=== PATIENT | male | born 1955 | race Caucasian/White ===

== ENCOUNTER 2017-02-08 08:19 | Inpatient (IN) | payer OTHER ==
[2017-02-08 09:26] VITALS: BMI 31.3
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
[2017-02-08] MEDS ORDERED: hydrOXYzine PAMOATE 50 MG CAPSULE (FP) PO PRN (11:14)
[2017-02-08] MEDS ORDERED: MENTHOL/PHENOL 1 EACH UD MM PRN (11:14)
[2017-02-08] MEDS ORDERED: ACETAMINOPHEN 325 MG TABLET (FP) PO PRN (11:14)
[2017-02-08] MEDS ORDERED: diphenhydrAMINE HCL 50 MG CAPSULE PO PRN (11:14)
[2017-02-08] MEDS ORDERED: MAGNESIUM CITRATE 300 ML BOTTLE PO PRN (11:14)
[2017-02-08] MEDS ORDERED: LOPERAMIDE HCL 2 MG CAPSULE PO PRN (11:14)
[2017-02-08] MEDS ORDERED: guaiFENesin/D-METHORPHAN HB 10 ML UNIT-DOSE CUPS PO PRN (11:14)
[2017-02-08] MEDS ORDERED: MAGNESIUM HYDROX 2400MG/30ML ORAL SUSPENSION 30 ML CUP PO PRN (11:14)
[2017-02-08] MEDS ORDERED: chlordiazePOXIDE HCL 25 MG CAPSULE PO PRN (11:14)
[2017-02-08] MEDS ORDERED: P-EPHED 60MG/TRIPROLIDI 2.5MG TABLET PO PRN (11:14)
[2017-02-08] MEDS ORDERED: MAG HYDROX/AL HYDROX/SIMETH 30 ML UNIT-DOSE CUP PO PRN (11:14)
[2017-02-08] MEDS ORDERED: chlordiazePOXIDE HCL 25 MG CAPSULE PO ONE (11:45)
[2017-02-08] MEDS: HYDROCHLOROTHIAZIDE 25 MG TABLET (FP) PO SCH (13:10)
[2017-02-08] MEDS: NIFEdipine E.R. 30 MG TABLET (FP) PO SCH (13:10)
[2017-02-08 16:25] LABS: URINE APPEARANCE CLOUDY; URINE BILIRUBIN NEGATIVE (NEGATIVE); URINE BLOOD NEGATIVE (NEGATIVE); URINE COLOR YELLOW; URINE GLUCOSE (UA) NEGATIVE (NEGATIVE); URINE KETONE NEGATIVE (NEGATIVE); URINE LEUK ESTERASE NEGATIVE (NEGATIVE); URINE NITRITE NEGATIVE (NEGATIVE); URINE PROTEIN NEGATIVE (NEGATIVE); URINE UROBILINOGEN NEGATIVE E.U./dl (0.2-1.0)
[2017-02-08] MEDS: chlordiazePOXIDE HCL 25 MG CAPSULE PO SCH ×2 (17:29→22:39)
[2017-02-08] MEDS: IBUPROFEN 400 MG TABLET (FP) PO PRN (17:29)
[2017-02-08] MEDS ORDERED: SENNOSIDES 8.6MG TABLET (FP) PO SCH (22:00)
[2017-02-08] MEDS: ATORVASTATIN CA 10 MG TABLET (FP) PO SCH (22:39)
[2017-02-08] MEDS: RANITIDINE HCL 150 MG TABLET (FP) PO SCH (22:39)
[2017-02-08] MEDS: THIAMINE HCL 100 MG TABLET (FP) PO SCH (22:39)
[2017-02-08] MEDS: SENNOSIDES 8.6MG TABLET (FP) PO SCH (22:39)
[2017-02-09] MEDS: chlordiazePOXIDE HCL 25 MG CAPSULE PO SCH ×4 (06:14→22:39)
[2017-02-09] MEDS: IBUPROFEN 400 MG TABLET (FP) PO PRN (08:44)
[2017-02-09 10:04] LABS: MCH 30.2 pg (25.7-33.7); MCHC 33.3 g/dl (32.0-35.9); MEAN CELL VOLUME 90.4 fl (80-96); PLATELET COUNT 154 K/MM3 (134-434); RDW 14.4 % (11.9-15.9); WHITE BLOOD COUNT 4.3 K/mm3 (4.0-10.0)
[2017-02-09] MEDS: NIFEdipine E.R. 30 MG TABLET (FP) PO SCH (10:27)
[2017-02-09] MEDS: PRENATAL VITAMINS W/ FOLIC ACID TABLET (FP) PO SCH (10:27)
[2017-02-09] MEDS: HYDROCHLOROTHIAZIDE 25 MG TABLET (FP) PO SCH (10:27)
[2017-02-09] MEDS: RANITIDINE HCL 150 MG TABLET (FP) PO SCH ×2 (10:27→22:39)
[2017-02-09 10:39] LABS: ALK PHOS 72 U/L (45-117); ANION GAP 10 (8-16); BILIRUBIN,TOTAL 1.6 mg/dL (0.2-1.0); CALCIUM 9.4 mg/dL (8.5-10.1); CHOLESTEROL 230 mg/dL (50-200); CO2 27 mmol/L (21-32); CREATININE 0.9 mg/dL (0.7-1.3); GLUCOSE,RANDOM 157 mg/dL (74-106); LDL CHOLESTEROL (ONLY SJRH) 99 mg/dL (5-100); SGOT/AST 36 U/L (15-37); SGPT/ALT 32 U/L (12-78); TOT PROT 7.6 g/dl (6.4-8.2)
--- NOTE | 2017-02-09 11:38 | PN ---
S CIWA - CIWA Score Nausea/Vomitin-No Nausea/No Vomiting Muscle Tremors: 4-Moderate,w/Arms Extend Anxiety: 3 Agitation: 4-Moderately Restless Paroxysmal Sweats: 3 Orientation: 0-Oriented Tacttile Disturbances: 0-None Auditory Disturbances: 0-None Visual Disturbances: 0-None Headache: 1-Very Mild CIWA-Ar Total Score: 15 BHS Progress Note (SOAP) Subjective: agitation sweats shakes body aches irritable Objective: 02/09/17 11:38 Vital Signs Temperature 96.8 F L 02/09/17 09:50 Pulse Rate 79 02/09/17 09:50 Respiratory Rate 16 02/09/17 09:50 Blood Pressure 139/81 02/09/17 09:50 O2 Sat by Pulse Oximetry (%) Laboratory Tests 02/08/17 02/08/17 02/09/17 11:40 15:00 06:00 WBC 4.3 D RBC 4.45 Hgb 13.4 Hct 40.3 MCV 90.4 MCHC 33.3 RDW 14.4 Plt Count 154 D MPV 9.0 Sodium Potassium Chloride Carbon Dioxide Anion Gap BUN Creatinine Creat Clearance w eGFR Random Glucose Calcium Total Bilirubin AST ALT Alkaline Phosphatase Total Protein Albumin Triglycerides Cholesterol Total LDL Cholesterol HDL Cholesterol Urine Color Yellow Urine Appearance Cloudy Urine pH 7.0 D Ur Specific [place] 1.017 Urine Protein Negative Urine Glucose (UA) Negative Urine Ketones Negative Urine Blood Negative Urine Nitrite Negative Urine Bilirubin Negative Urine Urobilinogen Negative Ur Leukocyte Esterase Negative Hepatitis C Antibody 0.1 02/09/17 06:00 WBC RBC Hgb Hct MCV MCHC RDW Plt Count MPV Sodium 139 Potassium 3.5 Chloride 102 Carbon Dioxide 27 Anion Gap 10 BUN 14 Creatinine 0.9 Creat Clearance w eGFR > 60 Random Glucose 157 H D Calcium 9.4 Total Bilirubin 1.6 H D AST 36 D ALT 32 Alkaline Phosphatase 72 Total Protein 7.6 Albumin 4.0 Triglycerides 59 D Cholesterol 230 H Total LDL Cholesterol 99 D HDL Cholesterol 132 H D Urine Color Urine Appearance Urine pH Ur Specific [place] Urine Protein Urine Glucose (UA) Urine Ketones Urine Blood Urine Nitrite Urine Bilirubin Urine Urobilinogen Ur Leukocyte Esterase Hepatitis C Antibody awake/alert ambulating no acute distress Assessment: 02/09/17 11:38 withdrawal sx Plan: continue detox increase fluids motrin 600mg prn
--- NOTE | 2017-02-09 15:30 | EKG ---
Test Reason : Blood Pressure : / mmHG Vent. Rate : 057 BPM Atrial Rate : 057 BPM P-R Int : 140 ms QRS Dur : 110 ms QT Int : 420 ms P-R-T Axes : 029 -24 024 degrees QTc Int : 408 ms POOR DATA QUALITY, INTERPRETATION MAY BE ADVERSELY AFFECTED SINUS BRADYCARDIA OTHERWISE NORMAL ECG NO PREVIOUS ECGS AVAILABLE Confirmed by ASIA KULKARNI MD ([id number]) on 02/09/2017 3:29:53 PM Referred By: Confirmed By:ASIA KULKARNI MD
--- NOTE | 2017-02-09 16:18 | CONSULT ---
[facility] Psychiatric Consult - Data Date of interview: 02/09/17 Admission source: [facility] Identifying data: This is 62 years old male with psychiatric hospitalization history intoxciated with: Alcohol , Xanax and Nicotine Substance Abuse History: PPD to be Administered?: Yes. - Smoking Cessation. Smoking history: Former smoker. Have you smoked in the past 12 months: No. If you are a former smoker, when did you quit?: at age 18. Hx Chewing Tobacco Use : No. Initiated information on smoking cessation: No. - Substance & Tx. History. Hx Alcohol Use: Yes. Hx Substance Use: No. Substance Use Type: Alcohol. Hx Substance Use Treatment: Yes (marisol 2015). - Substances Abused. Alcohol-beer/rum. Route: Oral. Frequency: Daily. Amount used: 4-5 (40 oz.) /1 pt. Age of first use: 13. Date of Last Use: 02/06/17 Medical History: Asthma, Hypercholesterolemia, Weight loss,k HTN, GERD, Seizure history, Syncope history Psychiatric History: Patient reportws history of depression and anxiety, reports most recent psychiatric admission on 2017 at [facility] , reports currently. taking: Ambien 10mg po qhs. Zoloft 100mg poqd. Gabapentin 300mg po tid Physical/Sexual Abuse/Trauma History: Denies Additional Comment: Ambien 10mg po qhs. Zoloft 100mg poqd. Gabapentin 300mg po tid Mental Status Exam - Mental Status Exam Alert and Oriented to: Person Cognitive Function: Fair Patient Appearance: Unkempt Mood: Sad Affect: Flat Patient Behavior: Sedated Speech Pattern: Delayed Voice Loudness: Mildly Soft/Quiet Thought Process: Circumstantial Thought Disorder: Being Controlled Hallucinations: Denies Suicidal Ideation: Denies Homicidal Ideation: Denies Insight/Judgement: Fair Sleep: Difficulty falling asleep Appetite: Weight gain Muscle strength/Tone: Mild Hypotonicity Gait/Station: Shuffling Additional Comments: Ambien 10mg po qhs. Zoloft 100mg poqd. Gabapentin 300mg po tid Psychiatric Findings - Problem List ([place] 1, 2,3) (1) Alcohol dependence with uncomplicated withdrawal Current Visit: Yes Status: Acute (2) Alcohol dependence Current Visit: No Status: Acute (3) Alcohol dependence, continuous Current Visit: No Status: Acute (4) Benzodiazepine abuse Current Visit: No Status: Acute (5) Drug-induced mood disorder Current Visit: No Status: Acute - Initial Treatment Plan Initial Treatment Plan: Ambien 10mg po qhs. Zoloft 100mg poqd. Gabapentin 300mg po tid
[2017-02-09] MEDS: ATORVASTATIN CA 10 MG TABLET (FP) PO SCH (22:38)
[2017-02-09] MEDS: THIAMINE HCL 100 MG TABLET (FP) PO SCH (22:38)
[2017-02-09] MEDS: GABAPENTIN 300 MG CAPSULE (FP) PO SCH (22:38)
[2017-02-09] MEDS: ZOLPIDEM TARTRATE 10 MG TABLET (PARK CARE ONLY) PO PRN (22:38)
[2017-02-09] MEDS: SENNOSIDES 8.6MG TABLET (FP) PO SCH (23:10)
[2017-02-10] MEDS: chlordiazePOXIDE HCL 25 MG CAPSULE PO SCH ×2 (05:40→10:38)
[2017-02-10] MEDS: GABAPENTIN 300 MG CAPSULE (FP) PO SCH ×3 (05:40→22:34)
--- NOTE | 2017-02-10 09:45 | PN ---
S CIWA - CIWA Score Nausea/Vomitin Muscle Tremors: 3 Anxiety: 3 Agitation: 2 Paroxysmal Sweats: 1-Minimal Palms Moist Orientation: 0-Oriented Tacttile Disturbances: 1-Very Mild Itch/Numbness Auditory Disturbances: 1-Very Mild Visual Disturbances: 1-Very Mild Sensitivity Headache: 2-Mild CIWA-Ar Total Score: 17 BHS Progress Note (SOAP) Subjective: ALERT,IRRITABLE,ANXIOUS,INTERRUPTED SLEEP,TREMOR Objective: 02/10/17 09:42 Vital Signs Temperature 97.7 F 02/10/17 06:00 Pulse Rate 80 02/10/17 06:00 Respiratory Rate 20 02/10/17 06:00 Blood Pressure 130/73 02/10/17 06:00 O2 Sat by Pulse Oximetry (%) EKG SINUS BRADYCARDIA,RATE 57/MIN 02/10/17 09:43 02/10/17 09:43 NO CHEST PAIN,NO SOB,NO DIZZINESS Assessment: 02/10/17 09:43 02/10/17 09:43 02/10/17 09:43 Laboratory Last Values WBC 4.3 K/mm3 (4.0-10.0) D 02/09/17 06:00 RBC 4.45 M/mm3 (4.00-5.60) 02/09/17 06:00 Hgb 13.4 GM/dL (11.7-16.9) 02/09/17 06:00 Hct 40.3 % (35.4-49) 02/09/17 06:00 MCV 90.4 fl (80-96) 02/09/17 06:00 MCHC 33.3 g/dl (32.0-35.9) 02/09/17 06:00 RDW 14.4 % (11.9-15.9) 02/09/17 06:00 Plt Count 154 K/MM3 (134-434) D 02/09/17 06:00 MPV 9.0 fl (7.5-11.1) 02/09/17 06:00 Sodium 139 mmol/L (136-145) 02/09/17 06:00 Potassium 3.5 mmol/L (3.5-5.1) 02/09/17 06:00 Chloride 102 mmol/L (98-107) 02/09/17 06:00 Carbon Dioxide 27 mmol/L (21-32) 02/09/17 06:00 Anion Gap 10 (8-16) 02/09/17 06:00 BUN 14 mg/dL (7-18) 02/09/17 06:00 Creatinine 0.9 mg/dL (0.7-1.3) 02/09/17 06:00 Creat Clearance w eGFR > 60 (>60) 02/09/17 06:00 Random Glucose 157 mg/dL (74-106) H D 02/09/17 06:00 Calcium 9.4 mg/dL (8.5-10.1) 02/09/17 06:00 Total Bilirubin 1.6 mg/dL (0.2-1.0) H D 02/09/17 06:00 AST 36 U/L (15-37) D 02/09/17 06:00 ALT 32 U/L (12-78) 02/09/17 06:00 Alkaline Phosphatase 72 U/L (45-117) 02/09/17 06:00 Total Protein 7.6 g/dl (6.4-8.2) 02/09/17 06:00 Albumin 4.0 g/dl (3.4-5.0) 02/09/17 06:00 Triglycerides 59 mg/dL (35-160) D 02/09/17 06:00 Cholesterol 230 mg/dL (50-200) H 02/09/17 06:00 Total LDL Cholesterol 99 mg/dL (5-100) D 02/09/17 06:00 HDL Cholesterol 132 mg/dL (40-60) H D 02/09/17 06:00 Urine Color Yellow 02/08/17 15:00 Urine Appearance Cloudy 02/08/17 15:00 Urine pH 7.0 (5.0-8.0) D 02/08/17 15:00 Ur Specific [place] 1.017 (1.001-1.035) 02/08/17 15:00 Urine Protein Negative (NEGATIVE) 02/08/17 15:00 Urine Glucose (UA) Negative (NEGATIVE) 02/08/17 15:00 Urine Ketones Negative (NEGATIVE) 02/08/17 15:00 Urine Blood Negative (NEGATIVE) 02/08/17 15:00 Urine Nitrite Negative (NEGATIVE) 02/08/17 15:00 Urine Bilirubin Negative (NEGATIVE) 02/08/17 15:00 Urine Urobilinogen Negative E.U./dl (0.2-1.0) 02/08/17 15:00 Ur Leukocyte Esterase Negative (NEGATIVE) 02/08/17 15:00 RPR Titer Nonreactive (NONREACTIVE) 02/09/17 06:00 Hepatitis C Antibody 0.1 s/co ratio (0.0-0.9) 02/08/17 11:40 Plan: WITHDRAWAL SYMPTOM,CONTINUE DETOX,BGM MONITORING,INITIAL GLUCOSE IS 157
[2017-02-10] MEDS: HYDROCHLOROTHIAZIDE 25 MG TABLET (FP) PO SCH (10:38)
[2017-02-10] MEDS: IBUPROFEN 600 MG TABLET (FP) PO PRN (10:38)
[2017-02-10] MEDS: PRENATAL VITAMINS W/ FOLIC ACID TABLET (FP) PO SCH (10:38)
[2017-02-10] MEDS: SERTRALINE HCL 50 MG TABLET (FP) PO SCH (10:38)
[2017-02-10] MEDS: RANITIDINE HCL 150 MG TABLET (FP) PO SCH ×2 (10:38→22:34)
[2017-02-10] MEDS: NIFEdipine E.R. 30 MG TABLET (FP) PO SCH (10:39)
[2017-02-10] MEDS: chlordiazePOXIDE 5 MG CAPSULE PO SCH ×2 (17:29→22:33)
[2017-02-10] MEDS: ZOLPIDEM TARTRATE 10 MG TABLET (PARK CARE ONLY) PO PRN (22:33)
[2017-02-10] MEDS: THIAMINE HCL 100 MG TABLET (FP) PO SCH (22:34)
[2017-02-10] MEDS: ATORVASTATIN CA 10 MG TABLET (FP) PO SCH (22:34)
[2017-02-10] MEDS: SENNOSIDES 8.6MG TABLET (FP) PO SCH (22:34)
[2017-02-11] MEDS: chlordiazePOXIDE 5 MG CAPSULE PO SCH ×2 (05:38→11:07)
[2017-02-11] MEDS: GABAPENTIN 300 MG CAPSULE (FP) PO SCH ×3 (05:38→22:52)
[2017-02-11] MEDS: PRENATAL VITAMINS W/ FOLIC ACID TABLET (FP) PO SCH (11:07)
[2017-02-11] MEDS: RANITIDINE HCL 150 MG TABLET (FP) PO SCH ×2 (11:07→22:52)
[2017-02-11] MEDS: HYDROCHLOROTHIAZIDE 25 MG TABLET (FP) PO SCH (11:07)
[2017-02-11] MEDS: SERTRALINE HCL 50 MG TABLET (FP) PO SCH (11:07)
[2017-02-11] MEDS: NIFEdipine E.R. 30 MG TABLET (FP) PO SCH (11:35)
--- NOTE | 2017-02-11 11:46 | PN ---
BHS Progress Note (SOAP) Subjective: ALERT,IRRITABLE,ANXIOUS,INTERRUPTED SLEEP,WHEEZING Objective: 02/11/17 11:44 Vital Signs Temperature 98.1 F 02/11/17 10:33 Pulse Rate 77 02/11/17 10:33 Respiratory Rate 16 02/11/17 10:33 Blood Pressure 134/72 02/11/17 10:33 O2 Sat by Pulse Oximetry (%) [facility] 96 Assessment: 02/11/17 11:44 WITHDRAWAL SYMPTOM Plan: CONTINUE DETOX,ALBUTEROL INHALER PRN Q 4 HRS,DISCHARGE IN AM
[2017-02-11] MEDS: ALBUTEROL SO4 6.7 GM HFA INHALER IH PRN (11:53)
[2017-02-11] MEDS ORDERED: ALBUTEROL SO4 6.7 GM HFA INHALER IH PRN (13:45)
[2017-02-11] MEDS: chlordiazePOXIDE HCL 10 MG CAPSULE PO SCH ×2 (17:49→22:52)
[2017-02-11] MEDS: ZOLPIDEM TARTRATE 10 MG TABLET (PARK CARE ONLY) PO PRN (22:52)
[2017-02-11] MEDS: SENNOSIDES 8.6MG TABLET (FP) PO SCH (22:52)
[2017-02-11] MEDS: ATORVASTATIN CA 10 MG TABLET (FP) PO SCH (22:52)
[2017-02-11] MEDS: THIAMINE HCL 100 MG TABLET (FP) PO SCH (22:52)
[2017-02-12] MEDS: ALBUTEROL SO4 6.7 GM HFA INHALER IH PRN (04:23)
[2017-02-12] MEDS: chlordiazePOXIDE HCL 10 MG CAPSULE PO SCH (05:37)
[2017-02-12] MEDS: GABAPENTIN 300 MG CAPSULE (FP) PO SCH (05:37)
[2017-02-12 07:27] VITALS: BP 135/85; PULSE 86; TEMP 97.7
--- NOTE | 2017-02-12 09:01 | PN ---
S Progress Note (SOAP) Subjective: ALERT,NO COMPLAINT Objective: 02/12/17 09:00 Vital Signs Temperature 97.7 F 02/12/17 07:26 Pulse Rate 86 02/12/17 07:26 Respiratory Rate 20 02/12/17 07:26 Blood Pressure 135/85 02/12/17 07:26 O2 Sat by Pulse Oximetry (%) Assessment: 02/12/17 09:00 DETOX COMPLETED,NO WITHDRAWAL SYMPTOM Plan: DISCHARGE TODAY,FOLLOW UP WITH AFTER CARE PROGRAM ARRANGEMENT
--- NOTE | 2017-02-12 09:02 | DS ---
[facility] Detox Discharge Summary Admission Date: 02/08/17 Discharge Date: 02/12/17 - History Present History: Alcohol Dependence Additional Comments: FOLLOW UP WITH AFTER [facility] PROGRAM ARRANGEMENT AND PMD FOR MEDICAL PROBLEM Pertinent Past History: HYPERTENSION HYPERCHOLESTEROLEMIA GERD SEIZURE SYNCOPE ASTHMA WEIGHT LOSS - Physical Exam Results Vital Signs: Vital Signs Temperature 97.7 F 02/12/17 07:26 Pulse Rate 86 02/12/17 07:26 Respiratory Rate 20 02/12/17 07:26 Blood Pressure 135/85 02/12/17 07:26 O2 Sat by Pulse Oximetry (%) Pertinent Admission Physical Exam Findings: WITHDRAWAL SYMPTOM - Treatment Hospital Course: Detox Protocol Followed, Detoxed Safely, Responded well, Discharged Condition Good Patient has Accepted a Rehab Referral to: [facility] - Medication Discharge Medications: Ambulatory Orders Albuterol Sulfate Inhaler - [Ventolin HFA Inhaler -] 2 inh PO Q4H PRN 06/17/15 Gabapentin [Neurontin -] 300 mg PO TID 06/17/15 Hydrochlorothiazide [Hctz -] 25 mg PO DAILY 06/17/15 Nifedipine ER [Procardia Xl -] 30 mg PO DAILY 06/17/15 Sennosides [Senna Lax] 8.6 mg PO HS 06/17/15 Sertraline HCl [Zoloft -] 100 mg PO DAILY 06/17/15 Simvastatin [Zocor -] 20 mg PO HS 06/17/15 Zolpidem Tartrate [Ambien -] 10 mg PO HS 06/17/15 Gabapentin 300 mg PO TID #90 capsule 02/09/17 Gabapentin [Neurontin -] 300 mg PO TID #90 02/09/17 Sertraline HCl [Zoloft -] 100 mg PO DAILY #30 tablet 02/09/17 Zolpidem Tartrate [Ambien] 10 mg PO HS #14 tablet MDD 10 02/09/17 - Diagnosis (1) Essential hypertension Current Visit: No Status: Acute (2) GERD (gastroesophageal reflux disease) Current Visit: No Status: Acute (3) Hypercholesteremia Current Visit: No Status: Acute (4) Seizure Current Visit: No Status: Acute (5) Syncope Current Visit: No Status: Acute (6) Alcohol dependence with uncomplicated withdrawal Current Visit: Yes Status: Acute (7) Weight loss Current Visit: Yes Status: Acute - AMA Did Patient Leave Against Medical Advice: No
[2017-02-12] MEDS: RANITIDINE HCL 150 MG TABLET (FP) PO SCH (10:31)
[2017-02-12] MEDS: PRENATAL VITAMINS W/ FOLIC ACID TABLET (FP) PO SCH (10:31)
[2017-02-12] MEDS: IBUPROFEN 600 MG TABLET (FP) PO PRN (10:32)
[2017-02-12] MEDS: SERTRALINE HCL 50 MG TABLET (FP) PO SCH (10:32)
[2017-02-12] MEDS: NIFEdipine E.R. 30 MG TABLET (FP) PO SCH (10:33)
== END 2017-02-12 10:50 | disposition home or self-care (01) | DRG 775 ==
LOC: YASAS 08:19 → Y6N 11:36
PROVIDERS: ADMIT Internal Medicine Addiction Medicine; ATTEND Internal Medicine Addiction Medicine
PROC: HZ2ZZZZ Detoxification Services for Substance Abuse Treatment (ICD-10-PCS; principal; 2017-02-08)
DX: F10.230 Alcohol dependence with withdrawal, uncomplicated (principal); F19.24 Other psychoactive substance dependence with psychoactive substance-induced mood disorder; I10 Essential (primary) hypertension; K21.9 Gastro-esophageal reflux disease without esophagitis; E78.00 Pure hypercholesterolemia, unspecified; J45.909 Unspecified asthma, uncomplicated; Z87.898 Personal history of other specified conditions; Z86.79 Personal history of other diseases of the circulatory system; Z91.14 Patient's other noncompliance with medication regimen; Z87.438 Personal history of other diseases of male genital organs; Z87.891 Personal history of nicotine dependence; Z91.5 Personal history of self-harm; Z59.0 Homelessness
CPT/HCPCS: 36415; 80053; 80061; 81003; 83721; 85027; 86593; 93005; 93010

== ENCOUNTER 2019-03-22 17:09 | Inpatient (IN) | payer OTHER ==
[2019-03-22 18:29] VITALS: BMI 31.8
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
[2019-03-22] MEDS ORDERED: LOPERAMIDE HCL 2 MG CAPSULE PO PRN (22:02)
[2019-03-22] MEDS ORDERED: MAGNESIUM HYDROX 2400MG/30ML ORAL SUSPENSION 30 ML CUP PO PRN (22:02)
[2019-03-22] MEDS ORDERED: MAG HYDROX/AL HYDROX/SIMETH 30 ML UNIT-DOSE CUP PO PRN (22:02)
[2019-03-22] MEDS ORDERED: ALBUTEROL SO4 8 GM HFA INHALER IH PRN (22:02)
[2019-03-22] MEDS ORDERED: MAGNESIUM CITRATE 300 ML BOTTLE PO PRN (22:02)
[2019-03-22] MEDS ORDERED: ACETAMINOPHEN 325 MG TABLET (FP) PO PRN (22:02)
[2019-03-22] MEDS ORDERED: IBUPROFEN 400 MG TABLET (FP) PO PRN (22:02)
[2019-03-22] MEDS ORDERED: guaiFENesin 200 MG/10 ML 10 ML UNIT-DOSE CUPS PO PRN (22:02)
[2019-03-22] MEDS ORDERED: P-EPHED 60MG/TRIPROLIDI 2.5MG TABLET PO PRN (22:02)
[2019-03-22] MEDS ORDERED: TUBERCULIN PPD 5 TU/0.1ML VIAL ID ONE (23:12)
[2019-03-23] MEDS ORDERED: cloNIDine HCL 0.1 MG TABLET PO ONE (06:53)
--- NOTE | 2019-03-23 06:56 | PN ---
[facility]AN[facility] Progress Note Note: Patient's blood pressure this morning is B/P 179/99. Patient is asymptomatic Vital Signs Temperature 97.6 F 03/22/19 22:30 Pulse Rate 51 L 03/22/19 22:30 Respiratory Rate 20 03/23/19 00:30 Blood Pressure 179/99 H 03/23/19 06:25 O2 Sat by Pulse Oximetry (%) Action: Clonidine 0.1mg tablet oral ordered
[2019-03-23] MEDS: NIFEdipine E.R. 30 MG TABLET (FP) PO SCH (10:24)
[2019-03-23 10:25] LABS: URINE APPEARANCE CLEAR; URINE BILIRUBIN NEGATIVE (NEGATIVE); URINE COLOR YELLOW; URINE GLUCOSE (UA) NEGATIVE (NEGATIVE); URINE KETONE NEGATIVE (NEGATIVE); URINE LEUK ESTERASE NEGATIVE (NEGATIVE); URINE NITRITE NEGATIVE (NEGATIVE); URINE PROTEIN NEGATIVE (NEGATIVE); URINE UROBILINOGEN 0.2 mg/dL (0.2-1.0)
[2019-03-23 10:32] LABS: PLATELET COUNT 210 K/MM3 (134-434); RBC 4.51 M/mm3 (4.00-5.60); RDW 14.2 % (11.9-15.9); WHITE BLOOD COUNT 6.6 K/mm3 (4.0-10.0)
[2019-03-23] MEDS: HYDROCHLOROTHIAZIDE 25 MG TABLET (FP) PO SCH (10:48)
[2019-03-23] MEDS: PRENATAL VITAMINS W/ FOLIC ACID TABLET (FP) PO SCH (10:48)
[2019-03-23 11:01] LABS: ALBUMIN 3.8 g/dl (3.4-5.0); ALK PHOS 76 U/L (45-117); ANION GAP 8 MMOL/L (8-16); BILIRUBIN,TOTAL 0.6 mg/dL (0.2-1); BLOOD UREA NITROGEN 13 mg/dL (7-18); CALCIUM 8.9 mg/dL (8.5-10.1); CHLORIDE 103 mmol/L (98-107); CO2 26 mmol/L (21-32); CREATININE 0.7 mg/dL (0.55-1.3); GLUCOSE,RANDOM 86 mg/dL (74-106); POTASSIUM 4.1 mmol/L (3.5-5.1); SGOT/AST 29 U/L (15-37); SGPT/ALT 63 U/L (13-61); SODIUM 138 mmol/L (136-145); TOT PROT 7.5 g/dl (6.4-8.2)
--- NOTE | 2019-03-23 15:18 | EKG ---
Test Reason : Blood Pressure : / mmHG Vent. Rate : 051 BPM Atrial Rate : 051 BPM P-R Int : 174 ms QRS Dur : 106 ms QT Int : 418 ms P-R-T Axes : 054 -17 051 degrees QTc Int : 385 ms SINUS BRADYCARDIA INCOMPLETE RIGHT BUNDLE BRANCH BLOCK NONSPECIFIC T WAVE ABNORMALITY ABNORMAL ECG WHEN COMPARED WITH ECG OF 08-FEB-2017 12:23, INCOMPLETE RIGHT BUNDLE BRANCH BLOCK IS NOW PRESENT Confirmed by MALINDA ELENA MD ([id number]) on 03/23/2019 3:18:32 PM Referred By: Confirmed By:MALINDA ELENA MD
[2019-03-23] MEDS: THIAMINE HCL 100 MG TABLET (FP) PO SCH (22:33)
[2019-03-23] MEDS: ATORVASTATIN CA 10 MG TABLET (FP) PO SCH (22:34)
[2019-03-24] MEDS: PRENATAL VITAMINS W/ FOLIC ACID TABLET (FP) PO SCH (09:50)
[2019-03-24] MEDS: HYDROCHLOROTHIAZIDE 25 MG TABLET (FP) PO SCH (09:50)
[2019-03-24] MEDS: NIFEdipine E.R. 30 MG TABLET (FP) PO SCH (09:50)
[2019-03-24] MEDS: ATORVASTATIN CA 10 MG TABLET (FP) PO SCH (21:48)
[2019-03-24] MEDS: THIAMINE HCL 100 MG TABLET (FP) PO SCH (21:50)
[2019-03-25] MEDS: PRENATAL VITAMINS W/ FOLIC ACID TABLET (FP) PO SCH (10:06)
[2019-03-25] MEDS: HYDROCHLOROTHIAZIDE 25 MG TABLET (FP) PO SCH (10:06)
[2019-03-25] MEDS: NIFEdipine E.R. 30 MG TABLET (FP) PO SCH (10:06)
[2019-03-25] MEDS: TOLNAFTATE 1% CREAM 15 GM TUBE TP SCH ×2 (10:23→21:53)
[2019-03-25] MEDS: THIAMINE HCL 100 MG TABLET (FP) PO SCH (21:52)
[2019-03-25] MEDS: ATORVASTATIN CA 10 MG TABLET (FP) PO SCH (21:52)
[2019-03-25] MEDS: GABAPENTIN 300 MG CAPSULE (FP) PO SCH (21:52)
[2019-03-25] MEDS: RANITIDINE HCL 150 MG TABLET (FP) PO SCH (21:52)
[2019-03-26] MEDS: GABAPENTIN 300 MG CAPSULE (FP) PO SCH ×3 (06:39→21:06)
[2019-03-26] MEDS: PRENATAL VITAMINS W/ FOLIC ACID TABLET (FP) PO SCH (10:13)
[2019-03-26] MEDS: TOLNAFTATE 1% CREAM 15 GM TUBE TP SCH ×2 (10:13→21:07)
[2019-03-26] MEDS: NIFEdipine E.R. 30 MG TABLET (FP) PO SCH (10:13)
[2019-03-26] MEDS: RANITIDINE HCL 150 MG TABLET (FP) PO SCH ×2 (10:13→21:06)
[2019-03-26] MEDS: HYDROCHLOROTHIAZIDE 25 MG TABLET (FP) PO SCH (10:13)
--- NOTE | 2019-03-26 14:41 | CONSULT ---
[facility] Psychiatric Consult - Data Date of interview: 03/26/19 Admission source: [facility] Identifying data: Mr Contreras is a 64 years old male, father of 5 children, unemployed receiving SSI, homeless seeking detox treatment for alcohol Substance Abuse History: Reports history of alcohol use. Refer to addiction counselor's summary for further information Medical History: Significant for anemia, bronchial asthma, hypertension, dyslipidemia, GERD/PUD and history of treatment for gonorrhea. Psychiatric History: Patient reports that his first psychiatric contact was in 2008 when he was admitted to [facility] for auditory hallucinations. He reports that he was there for 2 weeks, diagnosed with Bipolar/Schizphrenia and started on psychotropic medications. Reports 3 subsequent hospitalizations at [facility] and last two at [facility]. Most recently he was last there from to 03/22. He was discharged on Abilify 5 mg po daily, Gabapentin 300 mg po TID, Zoloft 100 mg po daily, Benadryl 50 mg po HS and referred to this facility for inpatient rehab. Reports that he was receiving receiving outpatient treatment at a clinic in the [place] and stopped going 6 months ago. Reports one suicidal attempt in 2014 by jumping in front of a car. At present denies experiencing psychotic, manic or depressive symptoms, S/H ideations. Physical/Sexual Abuse/Trauma History: Denies history of emotional, physical or sexual abuse as well as DV relationship. No service Additional Comment: Reports being given summons for selling [employer] Mental Status Exam - Mental Status Exam Alert and Oriented to: Time, Place, Person Cognitive Function: Fair Patient Appearance: Well Groomed Mood: Hopeful, Euthymic Patient Behavior: Cooperative Speech Pattern: Clear Voice Loudness: Normal Thought Process: Intact, Goal Oriented Hallucinations: Denies Suicidal Ideation: Denies Homicidal Ideation: Denies Insight/Judgement: Fair Sleep: Poorly Appetite: Good Muscle strength/Tone: Normal Gait/Station: Normal Psychiatric Findings - Problem List ([place] 1, 2,3) (1) Schizoaffective disorder Current Visit: Yes Status: Chronic (2) Bipolar disorder Current Visit: Yes Status: Ruled-out (3) Alcohol-induced sleep disorder Current Visit: Yes Status: Acute (4) Alcohol dependence Current Visit: Yes Status: Acute Qualifiers: Substance use status: uncomplicated Qualified Code(s): F10.20 - Alcohol dependence, uncomplicated (5) Asthma Current Visit: Yes Status: Chronic Qualifiers: Asthma severity: mild Asthma persistence: intermittent (6) Essential hypertension Current Visit: Yes Status: Chronic (7) GERD (gastroesophageal reflux disease) Current Visit: Yes Status: Chronic (8) Gonorrhea Current Visit: Yes Status: Resolved (9) Hypercholesteremia Current Visit: Yes Status: Chronic - Initial Treatment Plan Initial Treatment Plan: 1) Continue Abilify 5 mg po daily, Gabapentin 300 mg po TID and Zoloft 100 mg po daily. 2) Start Belsomra 10 mg po HS prn for insomnia. 3) Continue inpatient detoxification
[2019-03-26] MEDS ORDERED: GABAPENTIN 400 MG CAPSULE (FP) PO SCH (15:15)
[2019-03-26] MEDS: SERTRALINE HCL 50 MG TABLET (FP) PO SCH (16:05)
[2019-03-26] MEDS: ATORVASTATIN CA 10 MG TABLET (FP) PO SCH (21:06)
[2019-03-26] MEDS: THIAMINE HCL 100 MG TABLET (FP) PO SCH (21:06)
[2019-03-26] MEDS: MELATONIN 5 MG TABLETS PO PRN (21:07)
[2019-03-26] MEDS ORDERED: SUVOREXANT 10 MG TABLET PO PRN (22:00)
[2019-03-27] MEDS ORDERED: PT OWN MED DRAWER 7, Y5N ONE (03:10)
[2019-03-27] MEDS: GABAPENTIN 300 MG CAPSULE (FP) PO SCH ×3 (06:27→21:06)
[2019-03-27] MEDS: ARIPiprazole 5 MG TABLET (FP) PO SCH (06:27)
[2019-03-27] MEDS: NIFEdipine E.R. 30 MG TABLET (FP) PO SCH (10:00)
[2019-03-27] MEDS: HYDROCHLOROTHIAZIDE 25 MG TABLET (FP) PO SCH (10:00)
[2019-03-27] MEDS: PRENATAL VITAMINS W/ FOLIC ACID TABLET (FP) PO SCH (10:00)
[2019-03-27] MEDS: RANITIDINE HCL 150 MG TABLET (FP) PO SCH ×2 (10:00→21:06)
[2019-03-27] MEDS: TOLNAFTATE 1% CREAM 15 GM TUBE TP SCH ×2 (10:02→21:52)
[2019-03-27] MEDS: SERTRALINE HCL 50 MG TABLET (FP) PO SCH (10:33)
[2019-03-27] MEDS: THIAMINE HCL 100 MG TABLET (FP) PO SCH (21:05)
[2019-03-27] MEDS: ATORVASTATIN CA 10 MG TABLET (FP) PO SCH (21:06)
[2019-03-27] MEDS: MELATONIN 5 MG TABLETS PO PRN (21:07)
[2019-03-28] MEDS: GABAPENTIN 300 MG CAPSULE (FP) PO SCH ×3 (06:11→22:06)
[2019-03-28] MEDS: ARIPiprazole 5 MG TABLET (FP) PO SCH (06:11)
[2019-03-28] MEDS: TOLNAFTATE 1% CREAM 15 GM TUBE TP SCH ×2 (10:25→22:06)
[2019-03-28] MEDS: SERTRALINE HCL 50 MG TABLET (FP) PO SCH (10:26)
[2019-03-28] MEDS: RANITIDINE HCL 150 MG TABLET (FP) PO SCH ×2 (10:26→22:05)
[2019-03-28] MEDS: HYDROCHLOROTHIAZIDE 25 MG TABLET (FP) PO SCH (10:26)
[2019-03-28] MEDS: PRENATAL VITAMINS W/ FOLIC ACID TABLET (FP) PO SCH (10:26)
[2019-03-28] MEDS: NIFEdipine E.R. 30 MG TABLET (FP) PO SCH (10:26)
[2019-03-28] MEDS ORDERED: PT OWN MED DRAWER 7, Y5N ONE (13:18)
--- NOTE | 2019-03-28 14:06 | PN ---
[facility] Progress Note Note: Patient complains sleeping poorly on Belsomra. He requests to resume Benadryl 50 mg po HS to which he responded well when he was at [facility]
[2019-03-28] MEDS: THIAMINE HCL 100 MG TABLET (FP) PO SCH (22:05)
[2019-03-28] MEDS: ATORVASTATIN CA 10 MG TABLET (FP) PO SCH (22:05)
[2019-03-28] MEDS: diphenhydrAMINE HCL 50 MG CAPSULE PO PRN (22:05)
[2019-03-29] MEDS: GABAPENTIN 300 MG CAPSULE (FP) PO SCH ×3 (06:36→21:45)
[2019-03-29] MEDS: ARIPiprazole 5 MG TABLET (FP) PO SCH ×2 (06:36→06:38)
[2019-03-29] MEDS: NIFEdipine E.R. 30 MG TABLET (FP) PO SCH (09:57)
[2019-03-29] MEDS: PRENATAL VITAMINS W/ FOLIC ACID TABLET (FP) PO SCH (09:57)
[2019-03-29] MEDS: RANITIDINE HCL 150 MG TABLET (FP) PO SCH ×2 (09:57→21:45)
[2019-03-29] MEDS: TOLNAFTATE 1% CREAM 15 GM TUBE TP SCH ×2 (09:57→21:50)
[2019-03-29] MEDS: HYDROCHLOROTHIAZIDE 25 MG TABLET (FP) PO SCH (09:57)
[2019-03-29] MEDS: SERTRALINE HCL 50 MG TABLET (FP) PO SCH ×2 (09:58→21:51)
[2019-03-29] MEDS: ATORVASTATIN CA 10 MG TABLET (FP) PO SCH (21:45)
[2019-03-29] MEDS: THIAMINE HCL 100 MG TABLET (FP) PO SCH (21:45)
[2019-03-29] MEDS: diphenhydrAMINE HCL 50 MG CAPSULE PO PRN (21:46)
[2019-03-29] MEDS ORDERED: SUVOREXANT 10 MG TABLET PO PRN (22:00)
[2019-03-30] MEDS: ARIPiprazole 5 MG TABLET (FP) PO SCH (06:17)
[2019-03-30] MEDS: GABAPENTIN 300 MG CAPSULE (FP) PO SCH ×3 (06:17→21:45)
[2019-03-30] MEDS: RANITIDINE HCL 150 MG TABLET (FP) PO SCH ×2 (10:29→21:45)
[2019-03-30] MEDS: HYDROCHLOROTHIAZIDE 25 MG TABLET (FP) PO SCH (10:29)
[2019-03-30] MEDS: NIFEdipine E.R. 30 MG TABLET (FP) PO SCH (10:29)
[2019-03-30] MEDS: TOLNAFTATE 1% CREAM 15 GM TUBE TP SCH ×2 (10:29→21:50)
[2019-03-30] MEDS: PRENATAL VITAMINS W/ FOLIC ACID TABLET (FP) PO SCH (10:29)
[2019-03-30] MEDS: ATORVASTATIN CA 10 MG TABLET (FP) PO SCH (21:45)
[2019-03-30] MEDS: THIAMINE HCL 100 MG TABLET (FP) PO SCH (21:45)
[2019-03-30] MEDS: diphenhydrAMINE HCL 50 MG CAPSULE PO PRN (21:46)
[2019-03-30] MEDS: SERTRALINE HCL 50 MG TABLET (FP) PO SCH (21:50)
[2019-03-31] MEDS: GABAPENTIN 300 MG CAPSULE (FP) PO SCH ×3 (06:41→21:06)
[2019-03-31] MEDS: ARIPiprazole 5 MG TABLET (FP) PO SCH (06:42)
[2019-03-31] MEDS: NIFEdipine E.R. 30 MG TABLET (FP) PO SCH (09:54)
[2019-03-31] MEDS: PRENATAL VITAMINS W/ FOLIC ACID TABLET (FP) PO SCH (09:54)
[2019-03-31] MEDS: HYDROCHLOROTHIAZIDE 25 MG TABLET (FP) PO SCH (09:54)
[2019-03-31] MEDS: RANITIDINE HCL 150 MG TABLET (FP) PO SCH ×2 (09:54→21:07)
[2019-03-31] MEDS: TOLNAFTATE 1% CREAM 15 GM TUBE TP SCH ×2 (09:55→21:09)
[2019-03-31] MEDS: diphenhydrAMINE HCL 50 MG CAPSULE PO PRN (21:06)
[2019-03-31] MEDS: THIAMINE HCL 100 MG TABLET (FP) PO SCH (21:06)
[2019-03-31] MEDS: ATORVASTATIN CA 10 MG TABLET (FP) PO SCH (21:07)
[2019-03-31] MEDS ORDERED: PT OWN MED DRAWER 7, Y5N ONE (21:08)
[2019-03-31] MEDS: SERTRALINE HCL 50 MG TABLET (FP) PO SCH (21:52)
[2019-04-01] MEDS: GABAPENTIN 300 MG CAPSULE (FP) PO SCH ×3 (06:28→21:28)
[2019-04-01] MEDS: ARIPiprazole 5 MG TABLET (FP) PO SCH (06:28)
[2019-04-01] MEDS: NIFEdipine E.R. 30 MG TABLET (FP) PO SCH (10:47)
[2019-04-01] MEDS: RANITIDINE HCL 150 MG TABLET (FP) PO SCH ×2 (10:47→21:27)
[2019-04-01] MEDS: PRENATAL VITAMINS W/ FOLIC ACID TABLET (FP) PO SCH (10:47)
[2019-04-01] MEDS: HYDROCHLOROTHIAZIDE 25 MG TABLET (FP) PO SCH (10:47)
[2019-04-01] MEDS: TOLNAFTATE 1% CREAM 15 GM TUBE TP SCH ×2 (10:49→21:29)
[2019-04-01] MEDS: THIAMINE HCL 100 MG TABLET (FP) PO SCH (21:27)
[2019-04-01] MEDS: diphenhydrAMINE HCL 50 MG CAPSULE PO PRN (21:27)
[2019-04-01] MEDS: SERTRALINE HCL 50 MG TABLET (FP) PO SCH (21:28)
[2019-04-01] MEDS: ATORVASTATIN CA 10 MG TABLET (FP) PO SCH (21:28)
[2019-04-01] MEDS ORDERED: SUVOREXANT 10 MG TABLET PO PRN (22:00)
[2019-04-02] MEDS: ARIPiprazole 5 MG TABLET (FP) PO SCH ×2 (06:34→21:42)
[2019-04-02] MEDS: GABAPENTIN 300 MG CAPSULE (FP) PO SCH ×3 (06:34→21:42)
[2019-04-02] MEDS: RANITIDINE HCL 150 MG TABLET (FP) PO SCH ×2 (10:10→21:41)
[2019-04-02] MEDS: NIFEdipine E.R. 30 MG TABLET (FP) PO SCH (10:10)
[2019-04-02] MEDS: HYDROCHLOROTHIAZIDE 25 MG TABLET (FP) PO SCH (10:10)
[2019-04-02] MEDS: PRENATAL VITAMINS W/ FOLIC ACID TABLET (FP) PO SCH (10:10)
[2019-04-02] MEDS: TOLNAFTATE 1% CREAM 15 GM TUBE TP SCH ×2 (10:11→21:42)
[2019-04-02] MEDS: MENTHOL/PHENOL 1 EACH UD MM PRN (10:12)
[2019-04-02] MEDS: diphenhydrAMINE HCL 50 MG CAPSULE PO PRN (21:41)
[2019-04-02] MEDS: ATORVASTATIN CA 10 MG TABLET (FP) PO SCH (21:42)
[2019-04-02] MEDS: THIAMINE HCL 100 MG TABLET (FP) PO SCH (21:43)
[2019-04-02] MEDS: SERTRALINE HCL 50 MG TABLET (FP) PO SCH (21:43)
[2019-04-03] MEDS: GABAPENTIN 300 MG CAPSULE (FP) PO SCH ×3 (06:02→21:37)
[2019-04-03] MEDS: TOLNAFTATE 1% CREAM 15 GM TUBE TP SCH ×2 (10:06→21:37)
[2019-04-03] MEDS: NIFEdipine E.R. 30 MG TABLET (FP) PO SCH (10:06)
[2019-04-03] MEDS: RANITIDINE HCL 150 MG TABLET (FP) PO SCH ×2 (10:06→21:36)
[2019-04-03] MEDS: PRENATAL VITAMINS W/ FOLIC ACID TABLET (FP) PO SCH (10:06)
[2019-04-03] MEDS: HYDROCHLOROTHIAZIDE 25 MG TABLET (FP) PO SCH (10:06)
[2019-04-03] MEDS: THIAMINE HCL 100 MG TABLET (FP) PO SCH (21:36)
[2019-04-03] MEDS: ATORVASTATIN CA 10 MG TABLET (FP) PO SCH (21:37)
[2019-04-03] MEDS: ARIPiprazole 5 MG TABLET (FP) PO SCH (21:37)
[2019-04-03] MEDS: diphenhydrAMINE HCL 50 MG CAPSULE PO PRN (21:37)
[2019-04-03] MEDS: SERTRALINE HCL 50 MG TABLET (FP) PO SCH (21:51)
[2019-04-04] MEDS: GABAPENTIN 300 MG CAPSULE (FP) PO SCH ×3 (06:13→21:27)
[2019-04-04] MEDS: PRENATAL VITAMINS W/ FOLIC ACID TABLET (FP) PO SCH (10:11)
[2019-04-04] MEDS: RANITIDINE HCL 150 MG TABLET (FP) PO SCH ×2 (10:11→21:27)
[2019-04-04] MEDS: HYDROCHLOROTHIAZIDE 25 MG TABLET (FP) PO SCH (10:11)
[2019-04-04] MEDS: NIFEdipine E.R. 30 MG TABLET (FP) PO SCH (10:11)
[2019-04-04] MEDS: TOLNAFTATE 1% CREAM 15 GM TUBE TP SCH ×2 (10:11→21:28)
[2019-04-04] MEDS: diphenhydrAMINE HCL 50 MG CAPSULE PO PRN (21:27)
[2019-04-04] MEDS: THIAMINE HCL 100 MG TABLET (FP) PO SCH (21:27)
[2019-04-04] MEDS: ATORVASTATIN CA 10 MG TABLET (FP) PO SCH (21:27)
[2019-04-04] MEDS: ARIPiprazole 5 MG TABLET (FP) PO SCH (21:28)
[2019-04-04] MEDS: SERTRALINE HCL 50 MG TABLET (FP) PO SCH (21:28)
[2019-04-04] MEDS ORDERED: SUVOREXANT 10 MG TABLET PO PRN (22:00)
[2019-04-05] MEDS: GABAPENTIN 300 MG CAPSULE (FP) PO SCH ×3 (06:50→21:22)
[2019-04-05] MEDS ORDERED: PT OWN MED DRAWER 7, Y5N ONE (09:20)
[2019-04-05] MEDS: HYDROCHLOROTHIAZIDE 25 MG TABLET (FP) PO SCH (09:57)
[2019-04-05] MEDS: RANITIDINE HCL 150 MG TABLET (FP) PO SCH ×2 (09:57→21:22)
[2019-04-05] MEDS: PRENATAL VITAMINS W/ FOLIC ACID TABLET (FP) PO SCH (09:57)
[2019-04-05] MEDS: NIFEdipine E.R. 30 MG TABLET (FP) PO SCH (09:57)
[2019-04-05] MEDS: TOLNAFTATE 1% CREAM 15 GM TUBE TP SCH ×2 (10:39→21:22)
[2019-04-05] MEDS: ATORVASTATIN CA 10 MG TABLET (FP) PO SCH (21:21)
[2019-04-05] MEDS: MELATONIN 5 MG TABLETS PO PRN (21:21)
[2019-04-05] MEDS: ARIPiprazole 5 MG TABLET (FP) PO SCH (21:22)
[2019-04-05] MEDS: SERTRALINE HCL 50 MG TABLET (FP) PO SCH (21:22)
[2019-04-05] MEDS: THIAMINE HCL 100 MG TABLET (FP) PO SCH (21:22)
[2019-04-05] MEDS: diphenhydrAMINE HCL 50 MG CAPSULE PO PRN (21:22)
[2019-04-06] MEDS: GABAPENTIN 300 MG CAPSULE (FP) PO SCH ×3 (06:26→21:32)
[2019-04-06] MEDS: TOLNAFTATE 1% CREAM 15 GM TUBE TP SCH ×2 (09:56→21:30)
[2019-04-06] MEDS: RANITIDINE HCL 150 MG TABLET (FP) PO SCH ×2 (09:57→21:31)
[2019-04-06] MEDS: NIFEdipine E.R. 30 MG TABLET (FP) PO SCH (09:57)
[2019-04-06] MEDS: HYDROCHLOROTHIAZIDE 25 MG TABLET (FP) PO SCH (09:57)
[2019-04-06] MEDS: PRENATAL VITAMINS W/ FOLIC ACID TABLET (FP) PO SCH (09:57)
[2019-04-06] MEDS: SERTRALINE HCL 50 MG TABLET (FP) PO SCH (21:31)
[2019-04-06] MEDS: ARIPiprazole 5 MG TABLET (FP) PO SCH (21:31)
[2019-04-06] MEDS: MELATONIN 5 MG TABLETS PO PRN (21:31)
[2019-04-06] MEDS: diphenhydrAMINE HCL 50 MG CAPSULE PO PRN (21:31)
[2019-04-06] MEDS: THIAMINE HCL 100 MG TABLET (FP) PO SCH (21:31)
[2019-04-06] MEDS: ATORVASTATIN CA 10 MG TABLET (FP) PO SCH (21:31)
[2019-04-07] MEDS: GABAPENTIN 300 MG CAPSULE (FP) PO SCH ×3 (06:17→21:32)
[2019-04-07] MEDS: TOLNAFTATE 1% CREAM 15 GM TUBE TP SCH ×2 (09:43→21:32)
[2019-04-07] MEDS: RANITIDINE HCL 150 MG TABLET (FP) PO SCH ×2 (09:43→21:30)
[2019-04-07] MEDS: NIFEdipine E.R. 30 MG TABLET (FP) PO SCH (09:43)
[2019-04-07] MEDS: PRENATAL VITAMINS W/ FOLIC ACID TABLET (FP) PO SCH (09:43)
[2019-04-07] MEDS: HYDROCHLOROTHIAZIDE 25 MG TABLET (FP) PO SCH (09:43)
[2019-04-07] MEDS: THIAMINE HCL 100 MG TABLET (FP) PO SCH (21:30)
[2019-04-07] MEDS: ATORVASTATIN CA 10 MG TABLET (FP) PO SCH (21:30)
[2019-04-07] MEDS: ARIPiprazole 5 MG TABLET (FP) PO SCH (21:30)
[2019-04-07] MEDS: SERTRALINE HCL 50 MG TABLET (FP) PO SCH (21:30)
[2019-04-08] MEDS: GABAPENTIN 300 MG CAPSULE (FP) PO SCH ×3 (06:48→21:29)
[2019-04-08] MEDS: HYDROCHLOROTHIAZIDE 25 MG TABLET (FP) PO SCH (09:46)
[2019-04-08] MEDS: TOLNAFTATE 1% CREAM 15 GM TUBE TP SCH ×2 (09:46→21:30)
[2019-04-08] MEDS: NIFEdipine E.R. 30 MG TABLET (FP) PO SCH (09:47)
[2019-04-08] MEDS: PRENATAL VITAMINS W/ FOLIC ACID TABLET (FP) PO SCH (09:47)
[2019-04-08] MEDS: RANITIDINE HCL 150 MG TABLET (FP) PO SCH ×2 (09:48→21:30)
[2019-04-08] MEDS: MELATONIN 5 MG TABLETS PO PRN (21:29)
[2019-04-08] MEDS: THIAMINE HCL 100 MG TABLET (FP) PO SCH (21:29)
[2019-04-08] MEDS: diphenhydrAMINE HCL 50 MG CAPSULE PO PRN (21:30)
[2019-04-08] MEDS: ARIPiprazole 5 MG TABLET (FP) PO SCH (21:30)
[2019-04-08] MEDS: SERTRALINE HCL 50 MG TABLET (FP) PO SCH (21:30)
[2019-04-08] MEDS: ATORVASTATIN CA 10 MG TABLET (FP) PO SCH (21:30)
[2019-04-09] MEDS: GABAPENTIN 300 MG CAPSULE (FP) PO SCH ×3 (06:52→21:26)
[2019-04-09] MEDS: PRENATAL VITAMINS W/ FOLIC ACID TABLET (FP) PO SCH (09:47)
[2019-04-09] MEDS: HYDROCHLOROTHIAZIDE 25 MG TABLET (FP) PO SCH (09:47)
[2019-04-09] MEDS: TOLNAFTATE 1% CREAM 15 GM TUBE TP SCH ×2 (09:48→21:26)
[2019-04-09] MEDS: NIFEdipine E.R. 30 MG TABLET (FP) PO SCH (09:48)
[2019-04-09] MEDS: RANITIDINE HCL 150 MG TABLET (FP) PO SCH ×2 (09:48→21:26)
[2019-04-09] MEDS: diphenhydrAMINE HCL 50 MG CAPSULE PO PRN (21:25)
[2019-04-09] MEDS: MELATONIN 5 MG TABLETS PO PRN (21:25)
[2019-04-09] MEDS: SERTRALINE HCL 50 MG TABLET (FP) PO SCH (21:26)
[2019-04-09] MEDS: ARIPiprazole 5 MG TABLET (FP) PO SCH (21:26)
[2019-04-09] MEDS: THIAMINE HCL 100 MG TABLET (FP) PO SCH (21:26)
[2019-04-09] MEDS: ATORVASTATIN CA 10 MG TABLET (FP) PO SCH (21:26)
[2019-04-10] MEDS: GABAPENTIN 300 MG CAPSULE (FP) PO SCH ×3 (06:29→21:16)
[2019-04-10] MEDS: HYDROCHLOROTHIAZIDE 25 MG TABLET (FP) PO SCH (10:48)
[2019-04-10] MEDS: PRENATAL VITAMINS W/ FOLIC ACID TABLET (FP) PO SCH (10:48)
[2019-04-10] MEDS: TOLNAFTATE 1% CREAM 15 GM TUBE TP SCH ×2 (10:48→21:44)
[2019-04-10] MEDS: RANITIDINE HCL 150 MG TABLET (FP) PO SCH ×2 (10:48→21:16)
[2019-04-10] MEDS: NIFEdipine E.R. 30 MG TABLET (FP) PO SCH (10:49)
[2019-04-10] MEDS: THIAMINE HCL 100 MG TABLET (FP) PO SCH (21:15)
[2019-04-10] MEDS: ATORVASTATIN CA 10 MG TABLET (FP) PO SCH (21:16)
[2019-04-10] MEDS: MELATONIN 5 MG TABLETS PO PRN (21:16)
[2019-04-10] MEDS: diphenhydrAMINE HCL 50 MG CAPSULE PO PRN (21:16)
[2019-04-10] MEDS: ARIPiprazole 5 MG TABLET (FP) PO SCH (21:16)
[2019-04-10] MEDS: SERTRALINE HCL 50 MG TABLET (FP) PO SCH (21:17)
[2019-04-11] MEDS: GABAPENTIN 300 MG CAPSULE (FP) PO SCH ×3 (06:32→21:53)
[2019-04-11] MEDS: HYDROCHLOROTHIAZIDE 25 MG TABLET (FP) PO SCH (09:46)
[2019-04-11] MEDS: PRENATAL VITAMINS W/ FOLIC ACID TABLET (FP) PO SCH (09:46)
[2019-04-11] MEDS: NIFEdipine E.R. 30 MG TABLET (FP) PO SCH (09:47)
[2019-04-11] MEDS: RANITIDINE HCL 150 MG TABLET (FP) PO SCH ×2 (09:47→21:21)
[2019-04-11] MEDS: TOLNAFTATE 1% CREAM 15 GM TUBE TP SCH ×2 (09:47→21:53)
[2019-04-11] MEDS: ATORVASTATIN CA 10 MG TABLET (FP) PO SCH (21:21)
[2019-04-11] MEDS: MELATONIN 5 MG TABLETS PO PRN (21:21)
[2019-04-11] MEDS: THIAMINE HCL 100 MG TABLET (FP) PO SCH (21:21)
[2019-04-11] MEDS ORDERED: PT OWN MED DRAWER 7, Y5N ONE (21:23)
[2019-04-11] MEDS: diphenhydrAMINE HCL 50 MG CAPSULE PO PRN (21:24)
[2019-04-11] MEDS: SERTRALINE HCL 50 MG TABLET (FP) PO SCH (21:53)
[2019-04-11] MEDS: ARIPiprazole 5 MG TABLET (FP) PO SCH (21:54)
[2019-04-12] MEDS: GABAPENTIN 300 MG CAPSULE (FP) PO SCH ×3 (06:40→21:23)
[2019-04-12] MEDS: HYDROCHLOROTHIAZIDE 25 MG TABLET (FP) PO SCH (09:53)
[2019-04-12] MEDS: TOLNAFTATE 1% CREAM 15 GM TUBE TP SCH ×2 (09:53→21:23)
[2019-04-12] MEDS: RANITIDINE HCL 150 MG TABLET (FP) PO SCH ×2 (09:53→21:22)
[2019-04-12] MEDS: NIFEdipine E.R. 30 MG TABLET (FP) PO SCH (09:53)
[2019-04-12] MEDS: PRENATAL VITAMINS W/ FOLIC ACID TABLET (FP) PO SCH (09:53)
[2019-04-12] MEDS: THIAMINE HCL 100 MG TABLET (FP) PO SCH (21:21)
[2019-04-12] MEDS: ARIPiprazole 5 MG TABLET (FP) PO SCH (21:22)
[2019-04-12] MEDS: diphenhydrAMINE HCL 50 MG CAPSULE PO PRN (21:22)
[2019-04-12] MEDS: ATORVASTATIN CA 10 MG TABLET (FP) PO SCH (21:22)
[2019-04-12] MEDS: MELATONIN 5 MG TABLETS PO PRN (21:22)
[2019-04-12] MEDS: SERTRALINE HCL 50 MG TABLET (FP) PO SCH (21:23)
[2019-04-13] MEDS: GABAPENTIN 300 MG CAPSULE (FP) PO SCH ×3 (05:52→21:37)
[2019-04-13] MEDS: NIFEdipine E.R. 30 MG TABLET (FP) PO SCH (09:35)
[2019-04-13] MEDS: PRENATAL VITAMINS W/ FOLIC ACID TABLET (FP) PO SCH (09:35)
[2019-04-13] MEDS: HYDROCHLOROTHIAZIDE 25 MG TABLET (FP) PO SCH (09:35)
[2019-04-13] MEDS: RANITIDINE HCL 150 MG TABLET (FP) PO SCH ×2 (09:35→21:37)
[2019-04-13] MEDS: TOLNAFTATE 1% CREAM 15 GM TUBE TP SCH ×2 (09:36→21:37)
[2019-04-13] MEDS: THIAMINE HCL 100 MG TABLET (FP) PO SCH (21:36)
[2019-04-13] MEDS: diphenhydrAMINE HCL 50 MG CAPSULE PO PRN (21:37)
[2019-04-13] MEDS: ATORVASTATIN CA 10 MG TABLET (FP) PO SCH (21:37)
[2019-04-13] MEDS: MELATONIN 5 MG TABLETS PO PRN (21:37)
[2019-04-13] MEDS: ARIPiprazole 5 MG TABLET (FP) PO SCH (21:37)
[2019-04-13] MEDS: SERTRALINE HCL 50 MG TABLET (FP) PO SCH (21:38)
[2019-04-14] MEDS: GABAPENTIN 300 MG CAPSULE (FP) PO SCH ×3 (06:19→21:33)
[2019-04-14] MEDS: HYDROCHLOROTHIAZIDE 25 MG TABLET (FP) PO SCH (09:36)
[2019-04-14] MEDS: RANITIDINE HCL 150 MG TABLET (FP) PO SCH ×2 (09:36→21:34)
[2019-04-14] MEDS: PRENATAL VITAMINS W/ FOLIC ACID TABLET (FP) PO SCH (09:37)
[2019-04-14] MEDS: NIFEdipine E.R. 30 MG TABLET (FP) PO SCH (09:37)
[2019-04-14] MEDS: TOLNAFTATE 1% CREAM 15 GM TUBE TP SCH ×2 (09:37→21:34)
[2019-04-14] MEDS: THIAMINE HCL 100 MG TABLET (FP) PO SCH (21:30)
[2019-04-14] MEDS: MELATONIN 5 MG TABLETS PO PRN (21:30)
[2019-04-14] MEDS: diphenhydrAMINE HCL 50 MG CAPSULE PO PRN (21:31)
[2019-04-14] MEDS: SERTRALINE HCL 50 MG TABLET (FP) PO SCH (21:33)
[2019-04-14] MEDS: ARIPiprazole 5 MG TABLET (FP) PO SCH (21:33)
[2019-04-14] MEDS: ATORVASTATIN CA 10 MG TABLET (FP) PO SCH (21:33)
[2019-04-15] MEDS: GABAPENTIN 300 MG CAPSULE (FP) PO SCH ×3 (06:21→21:39)
[2019-04-15] MEDS: RANITIDINE HCL 150 MG TABLET (FP) PO SCH ×2 (09:37→21:37)
[2019-04-15] MEDS: HYDROCHLOROTHIAZIDE 25 MG TABLET (FP) PO SCH (09:37)
[2019-04-15] MEDS: PRENATAL VITAMINS W/ FOLIC ACID TABLET (FP) PO SCH (09:37)
[2019-04-15] MEDS: TOLNAFTATE 1% CREAM 15 GM TUBE TP SCH ×2 (09:37→21:39)
[2019-04-15] MEDS: NIFEdipine E.R. 30 MG TABLET (FP) PO SCH (09:37)
[2019-04-15] MEDS: MELATONIN 5 MG TABLETS PO PRN (21:37)
[2019-04-15] MEDS: THIAMINE HCL 100 MG TABLET (FP) PO SCH (21:37)
[2019-04-15] MEDS: diphenhydrAMINE HCL 50 MG CAPSULE PO PRN (21:37)
[2019-04-15] MEDS: ARIPiprazole 5 MG TABLET (FP) PO SCH (21:39)
[2019-04-15] MEDS: SERTRALINE HCL 50 MG TABLET (FP) PO SCH (21:39)
[2019-04-15] MEDS: ATORVASTATIN CA 10 MG TABLET (FP) PO SCH (21:39)
[2019-04-16 06:52] VITALS: TEMP 98.5
[2019-04-16] MEDS: GABAPENTIN 300 MG CAPSULE (FP) PO SCH ×2 (07:12→14:33)
[2019-04-16 09:52] VITALS: BP 156/71; PULSE 70
[2019-04-16] MEDS: NIFEdipine E.R. 30 MG TABLET (FP) PO SCH (10:55)
[2019-04-16] MEDS: TOLNAFTATE 1% CREAM 15 GM TUBE TP SCH (10:55)
[2019-04-16] MEDS: RANITIDINE HCL 150 MG TABLET (FP) PO SCH (10:55)
[2019-04-16] MEDS: PRENATAL VITAMINS W/ FOLIC ACID TABLET (FP) PO SCH (10:55)
[2019-04-16] MEDS: HYDROCHLOROTHIAZIDE 25 MG TABLET (FP) PO SCH (10:55)
[2019-04-16] MEDS: MENTHOL/PHENOL 1 EACH UD MM PRN (11:17)
[2019-04-16] MEDS ORDERED: PT OWN MED DRAWER 7, Y5N ONE ×2 (13:10→14:36)
--- NOTE | 2019-04-16 14:25 | PN ---
[facility] Progress Note (SOAP) Subjective: Patient is being discharged now to detention, declined admission to [facility]. Objective: A+O x3. no neurological deficits noted. CN 2-12 intact, heart sounds regular, lungs clear, abd soft, non-tender, non-distended, +BS. 04/16/19 14:24 CBC, BMP 03/22/19 05:30 03/22/19 05:30 Vital Signs (72 hours) 04/14/19 04/14/19 04/14/19 00:30 03:30 07:27 Temperature 98.4 F Pulse Rate 62 Respiratory 18 18 18 Rate Blood Pressure 148/76 04/14/19 04/15/19 04/15/19 09:30 00:30 03:30 Temperature Pulse Rate 70 Respiratory 18 20 18 Rate Blood Pressure 146/72 04/15/19 04/15/19 04/16/19 07:33 09:30 00:30 Temperature 97 F L Pulse Rate 61 65 Respiratory 18 18 18 Rate Blood Pressure 153/83 151/80 04/16/19 04/16/19 04/16/19 03:30 06:51 09:51 Temperature 98.5 F Pulse Rate 64 70 Respiratory 18 18 Rate Blood Pressure 150/80 156/71 Assessment: Medically stable for discharge. Discharge Dx; ETOH abuse, Asthma HTN Hypercholestremia GERD 04/16/19 14:26 Plan: patient is returning to the detention. Will receive after care at [facility], [facility] in the [place]. Prescriptions transmitted to [facility] in [facility].
--- NOTE | 2019-04-16 14:28 | PN ---
[facility] Progress Note Note: Psychiatry Attending's note : Nurse Herminia Lora called for scripts. Patient is getting discharged today. Chart reviewed. Medications revisited. Came to [facility]. Met with patient. In person. Medications discussed. Side effects/benefits reviewed. Mr Su endorses good tolerability + efficacy. Gave his verbal consent to MD for continuation of these medications. Scripts made for : abilify 5 mg po daily #30 tablets zoloft 100 mg po daily #30 tablets Sent electronically to [facility] [address] [place] [address] Pharmacy.
== END 2019-04-16 15:10 | disposition home or self-care (01) | DRG 58 ==
LOC: YASAS 17:09 → Y3W 22:30
PROVIDERS: ADMIT Neuromusculoskeletal Medicine & OMM; ATTEND Neuromusculoskeletal Medicine & OMM
PROC: HZ42ZZZ Group Counseling for Substance Abuse Treatment, Cognitive-Behavioral (ICD-10-PCS; principal; 2019-03-22)
DX: F10.282 Alcohol dependence with alcohol-induced sleep disorder (principal); F25.9 Schizoaffective disorder, unspecified; I10 Essential (primary) hypertension; J45.20 Mild intermittent asthma, uncomplicated; E78.5 Hyperlipidemia, unspecified; K21.9 Gastro-esophageal reflux disease without esophagitis; R00.1 Bradycardia, unspecified; Z87.891 Personal history of nicotine dependence; Z91.14 Patient's other noncompliance with medication regimen; Z87.438 Personal history of other diseases of male genital organs; Z91.5 Personal history of self-harm
CPT/HCPCS: 36415; 80053; 81003; 85027; 93005; 93010; J0735

== ENCOUNTER 2020-01-03 10:54 | Inpatient (IN) | payer OTHER ==
[2020-01-03 11:53] VITALS: BMI 37.5
--- NOTE | 2020-01-03 12:06 | HP ---
CIWA Score Nausea/Vomitin Muscle Tremors: 2 Anxiety: 2 Agitation: 2 Paroxysmal Sweats: 4-Forehead w/Sweat Beads Orientation: 3-Disoriented Date>2 days Tacttile Disturbances: 1-Very Mild Itch/Numbness Auditory Disturbances: 0-None Visual Disturbances: 0-None Headache: 4-Moderately Severe CIWA-Ar Total Score: 21 - Admission Criteria OASAS Guidelines: Admission for Medically Managed Detox: Requires at least one of the followin. CIWA greater than 12 2. Seizures within the past 24 hours 3. Delirium tremens within the past 24 hours 4. Hallucinations within the past 24 hours 5. Acute intervention needed for co occurring medical disorder 6. Acute intervention needed for co occurring psychiatric disorder 7. Severe withdrawal that cannot be handled at a lower level of care (continued vomiting, continued diarrhea, abnormal vital signs) requiring intravenous medication and/or fluids 8. Admitting History and Physical - Admission Chief Complaint: "I want to stop drinking." History of Present Illness: 64 year old male with history of alcohol dependence with withdrawals. He was at [facility] yesterday and told he needed to go to detox. 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 He was abstinent for many years but just relapsed 3 months ago. He is at high risk for continued use. Alcohol: 4-5 beets daily last drank yesterday 7 AM, he did endorse a blackout in 2017. He had completed detox and rehab in 2017 at [facility] and then was abstinent until 3 months ago. Denies other substances of abuse PMH: HTN, HLD,Asthma, GERD, Anemia Psych: Depression Psurg: Laceration recent R hand ( see sutures) History Source: Patient Limitations to Obtaining History: No Limitations - Past Medical History Cardiovascular: Yes: HTN, Hyperlipdemia Pulmonary: Yes: Asthma Heme/Onc: Yes: Anemia - Past Surgical History Past Surgical History: Yes: None - Advance Directives Advance Directives: No: Living Will, Health Care Proxy, DNR - Smoking History Smoking history: Never smoked Have you smoked in the past 12 months: No Aproximately how many cigarettes per day: 0 - Alcohol/Substance Use Hx Alcohol Use: Yes - Social History Usual Living Arrangement: Yes: Alone Do you think of yourself as: Straight/Heterosexual ADL: Independent Occupation: unemployed, doorman, retired History of Recent Travel: No Admission ROS S - HPI Allergies/Adverse Reactions: Allergies Allergy/AdvReac Type Severity Reaction Status Date / Time penicillin G Allergy Rash Verified 01/03/20 11:41 Exam Limitations: No Limitations - Ebola screening Have you traveled outside of the country in the last 21 days: No Have you had contact with anyone from an Ebola affected area: No Have you been sick,other than usual withdrawal symptoms: No Do you have a fever: No - Review of Systems Constitutional: Chills, Diaphoresis EENT: reports: No Symptoms Reported Respiratory: reports: No Symptoms reported Cardiac: reports: No Symptoms Reported GI: reports: No Symptoms Reported : reports: No Symptoms Reported Musculoskeletal: reports: No Symptoms Reported Integumentary: reports: No Symptoms Reported Neuro: reports: No Symptoms reported Endocrine: reports: No Symptoms Reported Hematology: reports: No Symptoms Reported Psychiatric: reports: Judgement Intact, Mood/Affect Appropiate, Anxious, Disorientated Other Systems: Reviewed and Negative Patient History - Patient Medical History Hx Anemia: No Hx Asthma: Yes (ON PUMP) Hx Chronic Obstructive Pulmonary Disease (COPD): No Hx Cancer: No Hx Cardiac Disorders: No Hx Congestive Heart Failure: No Hx Hypertension: Yes (ON MEDS- NONCOMPLIANT) Hx Hypercholesterolemia: Yes (non complicance) Hx Pacemaker: No HX Cerebrovascular Accident: No Hx Seizures: Yes (2 YRS AGO - ALCOHOL RLT) Hx Dementia: No Hx Diabetes: No Hx Gastrointestinal Disorders: No Hx Liver Disease: No Hx Genitourinary Disorders: No Hx Sexually Transmitted Disorders: No Hx Renal Disease (ESRD): No Hx Thyroid Disease: No Hx Human Immunodeficiency Virus (HIV): No (2016 negative) Hx Hepatitis C: No Hx Depression: Yes Hx Suicide Attempt: No Hx Bipolar Disorder: Yes Hx Schizophrenia: Yes - Patient Surgical History Past Surgical History: No Hx Neurologic Surgery: No Hx Cataract Extraction: No Hx Cardiac Surgery: No Hx Lung Surgery: No Hx Breast Surgery: No Hx Breast Biopsy: No Hx Abdominal Surgery: No Hx Appendectomy: No Hx Cholecystectomy: No Hx Genitourinary Surgery: No Hx Section: No Hx Orthopedic Surgery: No Anesthesia Reaction: No - PPD History Previous Implant?: Yes Documented Results: Negative w/proof Implanted On Prior R Admission?: Yes Date: 03/24/19 Results: 0mm PPD to be Administered?: No - Smoking Cessation Smoking history: Never smoked Have you smoked in the past 12 months: No If you are a former smoker, when did you quit?: at age 18 Hx Chewing Tobacco Use: No Initiated information on smoking cessation: No - Substances abused Alcohol Substance route: Oral Frequency: Daily Amount used: vodka 1 pint or 3-4 beers when no money Age of first use: 12 Date of last use: 01/02/20 Admission Physical Exam [facility] - Vital Signs Vital Signs: Vital Signs - 24 hr 01/03/20 11:35 Temperature 98.3 F Pulse Rate 83 Respiratory 18 Rate Blood Pressure 184/93 H - Physical General Appearance: Yes: Nourished, Appropriately Dressed, Mild Distress, Tremorous, Sweating, Anxious HEENTM: Yes: EOMI, Hearing grossly Normal, Normal ENT Inspection, Normocephalic , Normal Voice, MARILYN, Pharynx Normal, Tm's normal Respiratory: Yes: Chest Non-Tender, Lungs Clear, Normal Breath Sounds, No Respiratory Distress, No Accessory Muscle Use Neck: Yes: No masses,lesions,Nodules, Supple, Trachea in good position Breast: Yes: Within Normal Limits Cardiology: Yes: Regular Rhythm, Regular Rate, S1, S2 Abdominal: Yes: Normal Bowel Sounds, Non Tender, Flat, Soft Genitourinary: Yes: Within Normal Limits Back: Yes: Normal Inspection Musculoskeletal: Yes: full range of Motion, Gait Steady, Pelvis Stable Extremities: Yes: Normal Capillary Refill, Normal Inspection, Other (Right hand sutures) Neurological: Yes: material controller II-XII NML intact, Fully Oriented, Alert Integumentary: Yes: Normal Color, Warm Lymphatic: Yes: Within Normal Limits - Diagnostic (1) Alcohol dependence with uncomplicated withdrawal Current Visit: Yes Status: Acute (2) Asthma Current Visit: Yes Status: Chronic Qualifiers: Asthma severity: mild Asthma persistence: intermittent (3) Depression Current Visit: Yes Status: Chronic Qualifiers: Depression Type: unspecified Qualified Code(s): F32.9 - Major depressive disorder, single episode, unspecified (4) Essential hypertension Current Visit: Yes Status: Chronic (5) GERD (gastroesophageal reflux disease) Current Visit: Yes Status: Chronic (6) Hypercholesteremia Current Visit: Yes Status: Chronic Cleared for Admission [facility] - Detox or Rehab [facility] Level of Care: Medically Managed Detox Regimen/Protocol: Librium Screened but not Admitted - Documentation of Visit Screened but not Admitted: No Breathalyzer - Breathalyzer Breathalyzer: 0 (drank yesterday at 7AM) Urine Drug Screen - Test Device Lot number: [id number] Expiration date: 10/26/20 - Control Is test valid?: Yes - Results Drug screen NEGATIVE: No Urine drug screen results: BZO-Benzodiazepines Inpatient Rehab Admission - Rehab Decision to Admit Inpatient rehab admission?: No
[2020-01-03] MEDS ORDERED: IBUPROFEN 400 MG TABLET (FP) PO PRN (12:12)
[2020-01-03] MEDS ORDERED: hydrOXYzine PAMOATE 25 MG CAPSULE (FP) PO PRN (12:12)
[2020-01-03] MEDS ORDERED: MENTHOL/PHENOL 1 EACH UD MM PRN (12:12)
[2020-01-03] MEDS ORDERED: chlordiazePOXIDE HCL 25 MG CAPSULE PO PRN (12:12)
[2020-01-03] MEDS ORDERED: MAG HYDROX/AL HYDROX/SIMETH 30 ML UNIT-DOSE CUP PO PRN (12:12)
[2020-01-03] MEDS ORDERED: MAGNESIUM CITRATE 300 ML BOTTLE PO PRN (12:12)
[2020-01-03] MEDS ORDERED: BISMUTH SUBSALICYLATE 262 MG/15 ML BTL PO PRN (12:12)
[2020-01-03] MEDS ORDERED: ACETAMINOPHEN 325 MG TABLET (FP) PO PRN ×2 (12:12)
[2020-01-03] MEDS ORDERED: METHOCARBAMOL 500 MG TABLET PO PRN (12:12)
[2020-01-03] MEDS ORDERED: MAGNESIUM HYDROX 2400MG/30ML ORAL SUSPENSION 30 ML CUP PO PRN (12:12)
[2020-01-03] MEDS ORDERED: ALBUTEROL SO4 HFA INHALER IH PRN (12:14)
[2020-01-03] MEDS ORDERED: ATORVASTATIN CA 10 MG TABLET (FP) PO ONE (12:50)
[2020-01-03] MEDS: NIFEdipine E.R. 30 MG TABLET PO SCH (13:28)
[2020-01-03] MEDS: GABAPENTIN 300 MG CAPSULE PO SCH ×2 (13:28→22:22)
[2020-01-03] MEDS ORDERED: NIFEdipine 10 MG CAPSULE (FP) PO SCH (14:00)
[2020-01-03] MEDS: CLOTRIMAZOLE 1% CREAM 15 GM TUBE TP SCH ×2 (15:20→22:21)
[2020-01-03] MEDS: chlordiazePOXIDE HCL 25 MG CAPSULE PO SCH ×2 (17:12→22:21)
[2020-01-03 17:51] LABS: HEMATOCRIT 38.2 % (35.4-49); HEMOGLOBIN 13.1 GM/dL (11.7-16.9); MCH 30.9 pg (25.7-33.7); MCHC 34.2 g/dl (32.0-35.9); MEAN CELL VOLUME 90.3 fl (80-96); MEAN PLT VOLUME 9.3 fl (7.5-11.1); PLATELET COUNT 232 K/MM3 (134-434); RBC 4.23 M/mm3 (4.00-5.60); WHITE BLOOD COUNT 7.1 K/mm3 (4.0-10.0)
[2020-01-03 17:57] LABS: ALBUMIN 3.7 g/dl (3.4-5.0); BILIRUBIN,TOTAL 1.2 mg/dL (0.2-1); BLOOD UREA NITROGEN 14.1 mg/dL (7-18); CALCIUM 9.1 mg/dL (8.5-10.1); CREATININE 0.9 mg/dL (0.55-1.3); POTASSIUM 3.8 mmol/L (3.5-5.1); TOT PROT 7.4 g/dl (6.4-8.2)
[2020-01-03] MEDS: THIAMINE HCL 100 MG TABLET (FP) PO SCH (22:22)
[2020-01-04] MEDS: GABAPENTIN 300 MG CAPSULE PO SCH ×3 (05:12→22:31)
[2020-01-04] MEDS: chlordiazePOXIDE HCL 25 MG CAPSULE PO SCH ×4 (05:13→22:31)
[2020-01-04] MEDS ORDERED: NIFEdipine E.R. 30 MG TABLET PO SCH (10:00)
[2020-01-04] MEDS: NIFEdipine E.R. 30 MG TABLET PO SCH (10:18)
[2020-01-04] MEDS: PANTOPRAZOLE 40 MG TABLET PO SCH (10:18)
[2020-01-04] MEDS: HYDROCHLOROTHIAZIDE 25 MG TABLET (FP) PO SCH (10:18)
[2020-01-04] MEDS: PRENATAL VITAMINS W/ FOLIC ACID TABLET (FP) PO SCH (10:18)
[2020-01-04] MEDS: CLOTRIMAZOLE 1% CREAM 15 GM TUBE TP SCH ×2 (10:19→22:30)
--- NOTE | 2020-01-04 12:23 | PN ---
S CIWA - CIWA Score Nausea/Vomitin Muscle Tremors: 2 Anxiety: 2 Agitation: 2 Paroxysmal Sweats: 2 Orientation: 0-Oriented Tacttile Disturbances: 1-Very Mild Itch/Numbness Auditory Disturbances: 0-None Visual Disturbances: 0-None Headache: 2-Mild CIWA-Ar Total Score: 13 S Progress Note (SOAP) Subjective: Shakes, sweats, irritability, interrupted sleep and abdominal cramps Objective: 01/04/20 12:19 Withdrawal sx Vital Signs - 8 hr 01/04/20 01/04/20 06:42 09:03 Temperature 98.1 F 96.5 F L Pulse Rate 82 69 Respiratory 16 19 Rate Blood Pressure 131/69 126/70 VSS Laboratory Last Values WBC 7.1 K/mm3 (4.0-10.0) 01/03/20 12:15 RBC 4.23 M/mm3 (4.00-5.60) 01/03/20 12:15 Hgb 13.1 GM/dL (11.7-16.9) 01/03/20 12:15 Hct 38.2 % (35.4-49) 01/03/20 12:15 MCV 90.3 fl (80-96) 01/03/20 12:15 MCH 30.9 pg (25.7-33.7) 01/03/20 12:15 MCHC 34.2 g/dl (32.0-35.9) 01/03/20 12:15 RDW 14.0 % (11.9-15.9) 01/03/20 12:15 Plt Count 232 K/MM3 (134-434) 01/03/20 12:15 MPV 9.3 fl (7.5-11.1) 01/03/20 12:15 Sodium 137 mmol/L (136-145) 01/03/20 12:15 Potassium 3.8 mmol/L (3.5-5.1) 01/03/20 12:15 Chloride 104 mmol/L (98-107) 01/03/20 12:15 Carbon Dioxide 28 mmol/L (21-32) 01/03/20 12:15 Anion Gap 5 MMOL/L (8-16) L 01/03/20 12:15 BUN 14.1 mg/dL (7-18) 01/03/20 12:15 Creatinine 0.9 mg/dL (0.55-1.3) 01/03/20 12:15 Est GFR (CKD-EPI)AfAm 104.24 01/03/20 12:15 Est GFR (CKD-EPI)NonAf 89.94 01/03/20 12:15 Random Glucose 98 mg/dL (74-106) 01/03/20 12:15 Calcium 9.1 mg/dL (8.5-10.1) 01/03/20 12:15 Total Bilirubin 1.2 mg/dL (0.2-1) H 01/03/20 12:15 AST 37 U/L (15-37) 01/03/20 12:15 ALT 31 U/L (13-61) 01/03/20 12:15 Alkaline Phosphatase 89 U/L (45-117) 01/03/20 12:15 Total Protein 7.4 g/dl (6.4-8.2) 01/03/20 12:15 Albumin 3.7 g/dl (3.4-5.0) 01/03/20 12:15 RPR Titer Nonreactive (NONREACTIVE) 01/03/20 12:15 Labs noted, no panic values Assessment: 01/04/20 12:23 Withdrawal sx Plan: Continue detox
--- NOTE | 2020-01-04 13:04 | CONSULT ---
[facility] Psychiatric Consult - Data Date of interview: 01/04/20 Admission source: [facility] Identifying data: Revisit to [facility] and admission to [address] [place] [address] for this 64 y/o male self-referred for detoxification treatment. ELVI issues : alcohol. Patient is , father of five, homeless, unemployed and supported on SSI benefits. Substance Abuse History: Discussed with the patient. Details in current [facility] report as follows : Smoking history: Never smoked. Have you smoked in the past 12 months: No. If you are a former smoker, when did you quit?: at age 18. Hx Chewing Tobacco Use: No. Initiated information on smoking cessation: No. - Substances abused. Alcohol. Substance route: Oral. Frequency: Daily. Amount used: vodka 1 pint or 3-4 beers when no money. Age of first use: 12. Date of last use: 01/02/20 Medical History: Medical profile is remarkable for GERD, peptic ulcer disease, anemia, bronchial asthma, hypertension, antecedent of gonorrhea (treated), dyslipidemia and distant history of withdrawal-related seizures. Reported allergy to penicillins. Psychiatric History: Patient endorses history of three psychiatric hospitalizations ([facility]) + two admissions to [facility]. Onset of psychiatric disturbances : 2008 (command auditory hallucinations to commit suicide). Mr Cervantes got diagnosed with Bipolar Disorder versus Schizophrenia. Most recent hospitalization was at [place] from 03/13/19 to (discharged on a regimen of abilify 5 mg/day + gabapentin 300 mg/tid + zoloft 100 mg/day + benadryl 50 mg/hs). Patient indicates that he has stopped going to his psychiatric OPD program in the [place] ([facility], as per self- report). NO show for more than seven months. Patient reports history of one suicide attempt (via jumping in front of a car in 2014). Physical/Sexual Abuse/Trauma History: Patient denies. Additional Comment: Urine drug screen results: BZO-Benzodiazepines. Noted. Mental Status Exam - Mental Status Exam Alert and Oriented to: Time, Place, Person Cognitive Function: Good Patient Appearance: Unkempt, Disheveled Mood: Withdrawn Affect: Mood Congruent, Constricted Patient Behavior: Fatigued, Cooperative Speech Pattern: Clear Voice Loudness: Normal Thought Process: Goal Oriented Thought Disorder: Not Present Hallucinations: Denies Suicidal Ideation: Denies Homicidal Ideation: Denies Insight/Judgement: Poor Sleep: Well Appetite: Good Gait/Station: Normal Psychiatric Findings - Problem List ([place] 1, 2,3) (1) Alcohol dependence with uncomplicated withdrawal Current Visit: Yes Status: Acute (2) Drug-induced mood disorder Current Visit: Yes Status: Chronic (3) History of schizoaffective disorder Current Visit: Yes Status: Chronic Comment: Non compliant with medications for months. (4) Non-compliance Current Visit: Yes Status: Chronic - Initial Treatment Plan Initial Treatment Plan: Psychoeducation. Sleep hygiene. Detoxification in progress. AA meetings. Broadcast Operations Director contacted pharmacist at [facility]-[address] [place] [address] ([phone]) : last refills for zoloft + aripriprazole were issued in April 2019. Will not resume zoloft and abilify at this time (daytime somnolence noted during this interview + significant period of non-adherence). Observation.
[2020-01-04] MEDS: THIAMINE HCL 100 MG TABLET (FP) PO SCH (22:31)
[2020-01-05] MEDS: chlordiazePOXIDE HCL 25 MG CAPSULE PO SCH ×4 (05:34→22:19)
[2020-01-05] MEDS: GABAPENTIN 300 MG CAPSULE PO SCH ×3 (05:34→22:19)
[2020-01-05] MEDS ORDERED: ARIPiprazole 2 MG TABLET PO SCH (10:00)
[2020-01-05] MEDS: PANTOPRAZOLE 40 MG TABLET PO SCH (10:07)
[2020-01-05] MEDS: HYDROCHLOROTHIAZIDE 25 MG TABLET (FP) PO SCH (10:07)
[2020-01-05] MEDS: PRENATAL VITAMINS W/ FOLIC ACID TABLET (FP) PO SCH (10:07)
[2020-01-05] MEDS: CLOTRIMAZOLE 1% CREAM 15 GM TUBE TP SCH (10:07)
[2020-01-05] MEDS: NIFEdipine E.R. 30 MG TABLET PO SCH (10:07)
--- NOTE | 2020-01-05 14:27 | PN ---
S CIWA - CIWA Score Nausea/Vomitin-Mild Nausea/No Vomiting Muscle Tremors: 2 Anxiety: 3 Agitation: 2 Paroxysmal Sweats: 2 Orientation: 0-Oriented Tacttile Disturbances: 0-None Auditory Disturbances: 0-None Visual Disturbances: 0-None Headache: 0-None Present CIWA-Ar Total Score: 10 S Progress Note (SOAP) Subjective: Tremor, interrupted sleep Objective: 01/05/20 14:24 Last Vital Signs Temp Pulse Resp BP Pulse Ox 96.8 F L 81 18 137/79 01/05/20 12:39 01/05/20 12:39 01/05/20 12:39 01/05/20 12:39 Elevated b/p: has htn, on med Laboratory Tests 01/03/20 01/03/20 01/03/20 12:15 12:15 12:15 WBC 7.1 RBC 4.23 Hgb 13.1 Hct 38.2 MCV 90.3 MCH 30.9 MCHC 34.2 RDW 14.0 Plt Count 232 MPV 9.3 Sodium 137 Potassium 3.8 Chloride 104 Carbon Dioxide 28 Anion Gap 5 L BUN 14.1 Creatinine 0.9 Est GFR (CKD-EPI)AfAm 104.24 Est GFR (CKD-EPI)NonAf 89.94 Random Glucose 98 Calcium 9.1 Total Bilirubin 1.2 H AST 37 ALT 31 Alkaline Phosphatase 89 Total Protein 7.4 Albumin 3.7 RPR Titer Nonreactive Labs reviewed Assessment: 01/05/20 14:25 Withdrawal sxs Plan: Continue detox Encouraged PO water intake HTN: continue HCTZ and Nifedipine, follow up with PCP for management post discharge
[2020-01-05] MEDS: SERTRALINE HCL 25 MG TABLET (FP) PO SCH (16:00)
[2020-01-05] MEDS: THIAMINE HCL 100 MG TABLET (FP) PO SCH (22:19)
[2020-01-05] MEDS: MELATONIN 5 MG TABLETS PO PRN (22:20)
[2020-01-06] MEDS ORDERED: chlordiazePOXIDE HCL 10 MG CAPSULE PO PRN
[2020-01-06] MEDS: CLOTRIMAZOLE 1% CREAM 15 GM TUBE TP SCH ×3 (00:08→22:16)
[2020-01-06] MEDS: GABAPENTIN 300 MG CAPSULE PO SCH ×3 (05:40→22:14)
[2020-01-06] MEDS: chlordiazePOXIDE HCL 10 MG CAPSULE PO SCH ×4 (05:40→22:14)
[2020-01-06] MEDS: PRENATAL VITAMINS W/ FOLIC ACID TABLET (FP) PO SCH (10:06)
[2020-01-06] MEDS: NIFEdipine E.R. 30 MG TABLET PO SCH (10:07)
[2020-01-06] MEDS: PANTOPRAZOLE 40 MG TABLET PO SCH (10:07)
[2020-01-06] MEDS: HYDROCHLOROTHIAZIDE 25 MG TABLET (FP) PO SCH (10:07)
[2020-01-06] MEDS: SERTRALINE HCL 25 MG TABLET (FP) PO SCH (10:10)
--- NOTE | 2020-01-06 11:59 | PN ---
S CIWA - CIWA Score Nausea/Vomitin-Mild Nausea/No Vomiting Muscle Tremors: 2 Anxiety: 2 Agitation: 2 Paroxysmal Sweats: No Perspiration Orientation: 0-Oriented Tacttile Disturbances: 1-Very Mild Itch/Numbness Auditory Disturbances: 0-None Visual Disturbances: 0-None Headache: 2-Mild CIWA-Ar Total Score: 10 [facility] Progress Note (SOAP) Subjective: alert,irritable,anxious,interrupted sleep,pain in the body Objective: 01/06/20 11:58 Vital Signs Temperature 96.8 F L 01/06/20 08:57 Pulse Rate 86 01/06/20 08:57 Respiratory Rate 18 01/06/20 08:57 Blood Pressure 119/79 01/06/20 08:57 O2 Sat by Pulse Oximetry (%) Assessment: 01/06/20 11:58 withdrawal symptom Plan: continue detox librium regimen
[2020-01-06] MEDS: THIAMINE HCL 100 MG TABLET (FP) PO SCH (22:14)
[2020-01-06] MEDS: MELATONIN 5 MG TABLETS PO PRN (22:15)
[2020-01-07] MEDS: GABAPENTIN 300 MG CAPSULE PO SCH ×3 (05:23→21:29)
[2020-01-07] MEDS: chlordiazePOXIDE HCL 10 MG CAPSULE PO SCH ×2 (05:23→17:20)
[2020-01-07] MEDS: SERTRALINE HCL 25 MG TABLET (FP) PO SCH (10:35)
[2020-01-07] MEDS: PRENATAL VITAMINS W/ FOLIC ACID TABLET (FP) PO SCH (10:36)
[2020-01-07] MEDS: NIFEdipine E.R. 30 MG TABLET PO SCH (10:36)
[2020-01-07] MEDS: PANTOPRAZOLE 40 MG TABLET PO SCH (10:36)
[2020-01-07] MEDS: HYDROCHLOROTHIAZIDE 25 MG TABLET (FP) PO SCH (10:36)
[2020-01-07] MEDS: CLOTRIMAZOLE 1% CREAM 15 GM TUBE TP SCH ×2 (10:36→21:28)
--- NOTE | 2020-01-07 11:07 | PN ---
S CIWA - CIWA Score Nausea/Vomitin-Mild Nausea/No Vomiting Muscle Tremors: 2 Anxiety: 2 Agitation: 2 Paroxysmal Sweats: No Perspiration Orientation: 0-Oriented Tacttile Disturbances: 1-Very Mild Itch/Numbness Auditory Disturbances: 0-None Visual Disturbances: 1-Very Mild Sensitivity Headache: 1-Very Mild CIWA-Ar Total Score: 10 S Progress Note (SOAP) Subjective: alert,irritable,anxious,interrupted sleep,interrupted sleep Objective: 01/07/20 11:05 Vital Signs Temperature 97.9 F 01/07/20 08:49 Pulse Rate 72 01/07/20 08:49 Respiratory Rate 18 01/07/20 08:49 Blood Pressure 140/78 01/07/20 08:49 O2 Sat by Pulse Oximetry (%) Laboratory Last Values WBC 7.1 K/mm3 (4.0-10.0) 01/03/20 12:15 RBC 4.23 M/mm3 (4.00-5.60) 01/03/20 12:15 Hgb 13.1 GM/dL (11.7-16.9) 01/03/20 12:15 Hct 38.2 % (35.4-49) 01/03/20 12:15 MCV 90.3 fl (80-96) 01/03/20 12:15 MCH 30.9 pg (25.7-33.7) 01/03/20 12:15 MCHC 34.2 g/dl (32.0-35.9) 01/03/20 12:15 RDW 14.0 % (11.9-15.9) 01/03/20 12:15 Plt Count 232 K/MM3 (134-434) 01/03/20 12:15 MPV 9.3 fl (7.5-11.1) 01/03/20 12:15 Sodium 137 mmol/L (136-145) 01/03/20 12:15 Potassium 3.8 mmol/L (3.5-5.1) 01/03/20 12:15 Chloride 104 mmol/L (98-107) 01/03/20 12:15 Carbon Dioxide 28 mmol/L (21-32) 01/03/20 12:15 Anion Gap 5 MMOL/L (8-16) L 01/03/20 12:15 BUN 14.1 mg/dL (7-18) 01/03/20 12:15 Creatinine 0.9 mg/dL (0.55-1.3) 01/03/20 12:15 Est GFR (CKD-EPI)AfAm 104.24 01/03/20 12:15 Est GFR (CKD-EPI)NonAf 89.94 01/03/20 12:15 Random Glucose 98 mg/dL (74-106) 01/03/20 12:15 Calcium 9.1 mg/dL (8.5-10.1) 01/03/20 12:15 Total Bilirubin 1.2 mg/dL (0.2-1) H 01/03/20 12:15 AST 37 U/L (15-37) 01/03/20 12:15 ALT 31 U/L (13-61) 01/03/20 12:15 Alkaline Phosphatase 89 U/L (45-117) 01/03/20 12:15 Total Protein 7.4 g/dl (6.4-8.2) 01/03/20 12:15 Albumin 3.7 g/dl (3.4-5.0) 01/03/20 12:15 RPR Titer Nonreactive (NONREACTIVE) 01/03/20 12:15 Assessment: 01/07/20 11:06 withdrawal symptom Plan: continue detox librium regimen,discharge in am
[2020-01-07] MEDS: THIAMINE HCL 100 MG TABLET (FP) PO SCH (21:28)
[2020-01-07] MEDS: MELATONIN 5 MG TABLETS PO PRN (21:28)
[2020-01-08] MEDS ORDERED: chlordiazePOXIDE HCL 10 MG CAPSULE PO ONE (05:00)
[2020-01-08] MEDS: GABAPENTIN 300 MG CAPSULE PO SCH ×3 (06:33→22:23)
--- NOTE | 2020-01-08 09:21 | DS ---
[facility] Detox Discharge Summary Admission Date: 01/03/20 Discharge Date: 01/08/20 (d/c approx @1hr) - History Present History: Alcohol Dependence, Sedative Dependence - Physical Exam Results Vital Signs: Vital Signs Temperature 96.3 F L 01/08/20 06:58 Pulse Rate 62 01/08/20 06:58 Respiratory Rate 18 01/08/20 06:58 Blood Pressure 126/68 01/08/20 06:58 O2 Sat by Pulse Oximetry (%) Pertinent Admission Physical Exam Findings: Vital Signs Temperature 96.3 F L 01/08/20 06:58 Pulse Rate 62 01/08/20 06:58 Respiratory Rate 18 01/08/20 06:58 Blood Pressure 126/68 01/08/20 06:58 O2 Sat by Pulse Oximetry (%) - Treatment Hospital Course: Detox Protocol Followed, Detoxed Safely, Responded well, Discharged Condition Good, Rehab Referral Accepted Patient has Accepted a Rehab Referral to: referred to [facility] inpatient rehab - Medication Discharge Medications: Ambulatory Orders Sertraline HCl [Zoloft -] 100 mg PO DAILY 06/17/15 Gabapentin [Neurontin -] 300 mg PO TID #90 02/09/17 Diphenhydramine [Benadryl -] 50 mg PO HS PRN 03/23/19 Folic Acid - 1 mg PO DAILY 03/23/19 Albuterol Sulfate Inhaler - [Ventolin HFA Inhaler -] 2 inh PO Q4H PRN #1 inhaler 04/16/19 Aripiprazole [Abilify -] 5 mg PO DAILY #30 tablet 04/16/19 Hydrochlorothiazide [Hctz -] 25 mg PO DAILY #30 tablet 04/16/19 Nifedipine ER [Procardia XL -] 30 mg PO DAILY #30 tab.er.24 04/16/19 Ranitidine [Zantac -] 150 mg PO BID #60 tablet 04/16/19 Simvastatin [Zocor -] 20 mg PO HS #30 tablet 04/16/19 Thiamine HCl [Vitamin B-1] 1 tab PO DAILY #30 tablet 04/16/19 - Diagnosis (1) Alcohol dependence with uncomplicated withdrawal Current Visit: Yes Status: Chronic (2) Asthma Current Visit: Yes Status: Chronic Qualifiers: Asthma severity: mild Asthma persistence: intermittent (3) Depression Current Visit: Yes Status: Chronic Qualifiers: Depression Type: unspecified Qualified Code(s): F32.9 - Major depressive disorder, single episode, unspecified (4) Drug-induced mood disorder Current Visit: Yes Status: Chronic (5) Essential hypertension Current Visit: Yes Status: Chronic (6) GERD (gastroesophageal reflux disease) Current Visit: Yes Status: Chronic Qualifiers: Esophagitis presence: without esophagitis Qualified Code(s): K21.9 - Gastro -esophageal reflux disease without esophagitis (7) History of schizoaffective disorder Current Visit: Yes Status: Chronic (8) Hypercholesteremia Current Visit: Yes Status: Chronic (9) Non-compliance Current Visit: Yes Status: Chronic (10) Alcohol dependence Current Visit: No Status: Acute Qualifiers: Substance use status: uncomplicated Qualified Code(s): F10.20 - Alcohol dependence, uncomplicated (11) Alcohol dependence, continuous Current Visit: No Status: Acute (12) Alcohol-induced sleep disorder Current Visit: No Status: Acute (13) Benzodiazepine abuse Current Visit: No Status: Acute (14) Other and unspecified alcohol dependence, episodic drinking behavior Current Visit: No Status: Acute (15) Syncope Current Visit: No Status: Acute (16) Weight loss Current Visit: No Status: Acute (17) Schizoaffective disorder Current Visit: No Status: Chronic (18) Seizure Current Visit: No Status: Chronic (19) Gonorrhea Current Visit: No Status: Resolved (20) Bipolar disorder Current Visit: No Status: Ruled-out - AMA Did Patient Leave Against Medical Advice: No
[2020-01-08] MEDS: PANTOPRAZOLE 40 MG TABLET PO SCH (10:00)
[2020-01-08] MEDS: NIFEdipine E.R. 30 MG TABLET PO SCH (10:00)
[2020-01-08] MEDS: PRENATAL VITAMINS W/ FOLIC ACID TABLET (FP) PO SCH (10:00)
[2020-01-08] MEDS: HYDROCHLOROTHIAZIDE 25 MG TABLET (FP) PO SCH (10:00)
[2020-01-08] MEDS: CLOTRIMAZOLE 1% CREAM 15 GM TUBE TP SCH ×2 (10:00→22:23)
[2020-01-08] MEDS: SERTRALINE HCL 25 MG TABLET (FP) PO SCH (10:00)
--- NOTE | 2020-01-08 15:35 | PN ---
[facility] Progress Note Note: this morning counselor Jannet from [facility] states that pt will be going to [facility] rehab; it is now 3:34pm and counselor Jannet states that pt is restricted to [facility]. Pt will now remain until tomorrow where he will go to his aftercare at [facility]. pt was made aware of this matter.
[2020-01-08] MEDS: THIAMINE HCL 100 MG TABLET (FP) PO SCH (22:23)
[2020-01-08] MEDS: MELATONIN 5 MG TABLETS PO PRN (22:23)
[2020-01-09] MEDS: GABAPENTIN 300 MG CAPSULE PO SCH (05:56)
--- NOTE | 2020-01-09 08:45 | DS ---
[facility] Detox Discharge Summary Admission Date: 01/03/20 Discharge Date: 01/09/20 (d/c took @25-30min ) - History Present History: Alcohol Dependence - Physical Exam Results Vital Signs: Vital Signs Temperature 97.7 F 01/09/20 05:52 Pulse Rate 61 01/09/20 05:52 Respiratory Rate 17 01/09/20 05:52 Blood Pressure 112/56 L 01/09/20 05:52 O2 Sat by Pulse Oximetry (%) Pertinent Admission Physical Exam Findings: Vital Signs Temperature 97.7 F 01/09/20 05:52 Pulse Rate 61 01/09/20 05:52 Respiratory Rate 17 01/09/20 05:52 Blood Pressure 112/56 L 01/09/20 05:52 O2 Sat by Pulse Oximetry (%) Laboratory Tests 01/03/20 01/03/20 01/03/20 12:15 12:15 12:15 WBC 7.1 RBC 4.23 Hgb 13.1 Hct 38.2 MCV 90.3 MCH 30.9 MCHC 34.2 RDW 14.0 Plt Count 232 MPV 9.3 Sodium 137 Potassium 3.8 Chloride 104 Carbon Dioxide 28 Anion Gap 5 L BUN 14.1 Creatinine 0.9 Est GFR (CKD-EPI)AfAm 104.24 Est GFR (CKD-EPI)NonAf 89.94 Random Glucose 98 Calcium 9.1 Total Bilirubin 1.2 H AST 37 ALT 31 Alkaline Phosphatase 89 Total Protein 7.4 Albumin 3.7 RPR Titer Nonreactive aaox3 ambulating no acute distress lungs CTA - Treatment Hospital Course: Detox Protocol Followed, Detoxed Safely, Responded well, Discharged Condition Good, Rehab Referral Accepted Patient has Accepted a Rehab Referral to: referred to [facility] - Diagnosis (1) Alcohol dependence with uncomplicated withdrawal Current Visit: Yes Status: Chronic (2) Asthma Current Visit: Yes Status: Chronic Qualifiers: Asthma severity: mild Asthma persistence: intermittent (3) Depression Current Visit: Yes Status: Chronic Qualifiers: Depression Type: unspecified Qualified Code(s): F32.9 - Major depressive disorder, single episode, unspecified (4) Drug-induced mood disorder Current Visit: Yes Status: Chronic (5) Essential hypertension Current Visit: Yes Status: Chronic (6) GERD (gastroesophageal reflux disease) Current Visit: Yes Status: Chronic Qualifiers: Esophagitis presence: without esophagitis Qualified Code(s): K21.9 - Gastro -esophageal reflux disease without esophagitis (7) History of schizoaffective disorder Current Visit: Yes Status: Chronic (8) Hypercholesteremia Current Visit: Yes Status: Chronic (9) Non-compliance Current Visit: Yes Status: Chronic (10) Alcohol dependence Current Visit: No Status: Acute Qualifiers: Substance use status: uncomplicated Qualified Code(s): F10.20 - Alcohol dependence, uncomplicated (11) Alcohol dependence, continuous Current Visit: No Status: Acute (12) Alcohol-induced sleep disorder Current Visit: No Status: Acute (13) Benzodiazepine abuse Current Visit: No Status: Acute (14) Other and unspecified alcohol dependence, episodic drinking behavior Current Visit: No Status: Acute (15) Syncope Current Visit: No Status: Acute (16) Weight loss Current Visit: No Status: Acute (17) Schizoaffective disorder Current Visit: No Status: Chronic (18) Seizure Current Visit: No Status: Chronic (19) Gonorrhea Current Visit: No Status: Resolved (20) Bipolar disorder Current Visit: No Status: Ruled-out - AMA Did Patient Leave Against Medical Advice: No
[2020-01-09 11:03] VITALS: BP 134/65; PULSE 89; TEMP 96.3
== END 2020-01-09 12:33 | disposition home or self-care (01) | DRG 897 ==
LOC: YASAS 10:54 → Y6N 12:44
PROVIDERS: ADMIT Allergy & Immunology; ATTEND Allergy & Immunology
PROC: HZ2ZZZZ Detoxification Services for Substance Abuse Treatment (ICD-10-PCS; principal; 2020-01-03)
DX: F10.230 Alcohol dependence with withdrawal, uncomplicated (principal); F19.24 Other psychoactive substance dependence with psychoactive substance-induced mood disorder; F25.9 Schizoaffective disorder, unspecified; F32.9 Major depressive disorder, single episode, unspecified; I10 Essential (primary) hypertension; K21.9 Gastro-esophageal reflux disease without esophagitis; E78.00 Pure hypercholesterolemia, unspecified; J45.20 Mild intermittent asthma, uncomplicated; E78.5 Hyperlipidemia, unspecified; R63.4 Abnormal weight loss; Z68.37 Body mass index [BMI] 37.0-37.9, adult; Z87.19 Personal history of other diseases of the digestive system; Z86.19 Personal history of other infectious and parasitic diseases; Z86.69 Personal history of other diseases of the nervous system and sense organs; Z88.0 Allergy status to penicillin; Z91.19 Patient's noncompliance with other medical treatment and regimen; Z59.0 Homelessness
CPT/HCPCS: 36415; 80053; 85027; 86593